=== PATIENT | male | born 1970 | race Caucasian/White ===

== ENCOUNTER 2016-12-17 23:06 | Emergency (ER) | payer BC, OTHER ==
[~2016-12-17] VITALS: Ht 172.7 cm; Wt 97.5 kg
[~2016-12-17 23:06] MED LIST: ALBU17IN INH; ASPI1TAB PO; ASPI81CH PO; BUPR150T5 PO; BUPR300T34 PO; CARV25TA PO; CIPR500T89 PO; DRIS50002 PO; FLOM5CAP PO; GEMF600T PO; IPRASOL4 INH; ISOS30TA4 PO; LISI-538 PO; LISI40TAB PO; METF500T4 PO; METO50TA2 PO; MUCI600T34 PO; OMEP20CA3 PO; OXYC1TAB15 PO; PERCOCET PO; SIMV20TA2 PO
[2016-12-17] MEDS ORDERED: BENA25CA4 PO (23:24)
[2016-12-17] MEDS ORDERED: BENA25TA9 PO (23:24)
[2016-12-17] MEDS ORDERED: PENI250T57 PO (23:26)
[2016-12-18] MEDS ORDERED: NS 1,000 ML IV ONE (00:15)
[2016-12-18] MEDS ORDERED: diphenhydrAMINE INJ 50MG/ML VIAL (J1200) IV ONE (00:15)
[2016-12-18] MEDS ORDERED: FAMOTIDINE IV BAG 20 MG in APPROPRIATE DILUENT 1 EA IV ONE (00:15)
[2016-12-18] MEDS ORDERED: methylPREDNISolone INJ 125 MG/2 ML VIAL (J2930) IV ONE (00:15)
[2016-12-18] MEDS ORDERED: PRED20TA PO (02:01)
[2016-12-18] MEDS ORDERED: EPIP0.3I2 IJ (02:01)
[2016-12-18 02:11] VITALS: BP 147/96
== END 2016-12-18 02:18 | disposition home or self-care (01) ==
LOC: M ED 12-18 00:16
DX: R22.0 Localized swelling, mass and lump, head (principal); Z91.018 Allergy to other foods; I10 Essential (primary) hypertension; Z79.82 Long term (current) use of aspirin; Z79.899 Other long term (current) drug therapy; Z79.52 Long term (current) use of systemic steroids
CPT/HCPCS: 93041; 94760; 96365; 96375; 99284; J1200; J2930

== ENCOUNTER 2017-06-10 17:05 | Emergency (ER) | payer BC, OTHER ==
[~2017-06-10] VITALS: Ht 172.7 cm; Wt 99.0 kg
[~2017-06-10 17:05] MED LIST changes: +BENA25CA4 PO; +BENA25TA10 PO; +CIPR-249 PO; -CIPR500T89 PO; +EPIP0.3I2 IJ; -METO50TA2 PO; +METO50TA7 PO; -MUCI600T34 PO; +MUCI600T37 PO; +PENI250T57 PO; +PRED20TA PO
[2017-06-10] MEDS ORDERED: ATOR40TA75 PO (17:17)
[2017-06-10] MEDS ORDERED: POTA10TA67 PO (17:17)
[2017-06-10] MEDS ORDERED: LOSA100T36 PO (17:17)
[2017-06-10] MEDS ORDERED: INSULADS INJ (17:17)
[2017-06-10] MEDS ORDERED: FLUO20CA8 PO (17:17)
[2017-06-10] MEDS ORDERED: ALBUTEROL SULFATE 2.5 MG/0.5 ML INH NEB SOLN INH ONE (18:00)
[2017-06-10] MEDS ORDERED: IPRATROPIUM 0.5MG/ALBUTEROL 2.5MG INH SOL UD 3ML (DUONEB)(J7620) NEB ONE (18:00)
[2017-06-10] MEDS ORDERED: methylPREDNISolone INJ 125 MG/2 ML VIAL (J2930) IV ONE (18:00)
[2017-06-10 18:11] LABS: BASO % 0.4 % (0.0-1.0); EOS # 0.2 K/mm3 (0.0-0.50); EOS % 1.6 % (0.0-3.0); LARGE UNSTAINED CELL # 0.2 K/mm3 (0.0-0.4); LARGE UNSTAINED CELL % 1.4 % (0.0-4.0); LYMPH # 1.9 K/mm3 (1.5-4.5); MEAN CORPUSCULAR HEMOGLOBIN 28.2 pg (27.0-33.0); MEAN CORPUSCULAR HGB CONC 34.2 g/dl (32.0-36.5); MEAN CORPUSCULAR VOLUME 82.7 fl (80.0-96.0); MONO # 0.5 K/mm3 (0.0-0.8); MONO % 4.4 % (0.0-5.0); NEUTROPHILS # 7.4 K/mm3 (1.8-7.7); NEUTROPHILS % 73.1 % (36.0-66.0); PLATELET COUNT, AUTOMATED 391 k/mm3 (150-450); RED CELL DISTRIBUTION WIDTH 13.7 % (11.5-14.5); WHITE BLOOD COUNT 10.1 K/mm3 (4.0-10.0)
[2017-06-10 18:24] LABS: ALBUMIN 3.2 GM/DL (3.2-5.2); ALBUMIN/GLOBULIN RATIO 0.73 (1.00-1.93); ALKALINE PHOSPHATASE 71 U/L (45-117); ALT/SGPT 17 U/L (12-78); ANION GAP 10 MEQ/L (8-16); AST/SGOT 10 U/L (15-37); BILIRUBIN,DIRECT 0.2 MG/DL (0.0-0.2); BILIRUBIN,TOTAL 0.6 MG/DL (0.2-1.0); BLOOD UREA NITROGEN 6 MG/DL (7-18); CALCIUM LEVEL 7.6 MG/DL (8.5-10.1); CARBON DIOXIDE LEVEL 28 MEQ/L (21-32); CHLORIDE LEVEL 103 MEQ/L (98-107); CREATININE FOR GFR 0.63 MG/DL (0.70-1.30); GLOMERULAR FILTRATION RATE > 60.0 (>60); GLUCOSE, FASTING 116 MG/DL (70-105); POTASSIUM SERUM 2.5 MEQ/L (3.5-5.1); SODIUM LEVEL 141 MEQ/L (136-145); THYROXINE (T4) 8.2 UG/DL (4.5-12.0); TOTAL PROTEIN 7.6 GM/DL (6.4-8.2)
--- NOTE | 2017-06-10 18:45 | REP ---
Clinical: Shortness of breath. Comparison: 05/29/2016. Findings: Cardiomegaly is appreciated along with chronic interstitial changes and suspected superimposed interstitial edema versus diffuse bronchitis. Small patchy infiltrates involving the right lung cannot be excluded. No effusion. No pneumothorax. Skeletal structures intact. Impression: Cardiomegaly and possible interstitial edema. Differential diagnosis includes diffuse bronchitis as well as subtle patchy alveolar infiltrates involving the right lung and left perihilar region. Signed by Benito Burk MD 06/10/2017 06:36 P
[2017-06-10] MEDS ORDERED: FUROSEMIDE 40 MG/4 ML VIAL (J1940) IV ONE (19:00)
[2017-06-10] MEDS ORDERED: POTASSIUM CHLORIDE 10 MEQ SR TABLET PO ONE (19:30)
[2017-06-10 21:19] VITALS: O2SAT 100
[2017-06-10 21:29] VITALS: BP 178/94
--- NOTE | 2017-06-11 21:05 | ECGEPIP ---
Stationary ECG Study [facility] - ED Test Date: 2017-06-10 Pat Name: SANDRA SMITH Department: Room: - Gender: M Glazier Structural Glass: rn : 1970 Requested By: Bam Pérez Order Number: [id number] Reading MD: Soledad Main Measurements Intervals [place] Rate: 99 P: 38 MT: 195 QRS: 26 QRSD: 118 T: 38 QT: 373 QTc: 479 Interpretive Statements SINUS RHYTHM MODERATE INTRAVENTRICULAR CONDUCTION DELAY MINIMAL ST DEPRESSION DELAYED R PROGRESSION Electronically Signed On 06-11-2017 21:04:58 EDT by Soledad Main
== END 2017-06-10 21:31 | disposition home or self-care (01) ==
LOC: M ED 17:05
DX: I50.9 Heart failure, unspecified (principal); I25.2 Old myocardial infarction; E11.9 Type 2 diabetes mellitus without complications; I10 Essential (primary) hypertension; J44.9 Chronic obstructive pulmonary disease, unspecified; Z98.61 Coronary angioplasty status; Z72.0 Tobacco use
CPT/HCPCS: 71010; 80048; 80076; 82550; 82553; 83605; 83880; 84436; 84443; 85025; 87040; 93000; 93041; 94640; 94760; 96374; 96375; 99285; J1940; J2930

== ENCOUNTER 2018-02-16 21:28 | Emergency (ER) | payer OTHER ==
[2018-02-16 21:51] LABS: BASO # 0.1 10^3/uL (0.0-0.2); BASO % 0.5 % (0.0-1.0); EOS # 0.8 10^3/uL (0.0-0.50); EOS % 6.6 % (0.0-3.0); HEMATOCRIT 30.4 % (42.0-52.0); HEMOGLOBIN 10.3 g/dl (13.5-17.5); IMMATURE GRANULOCYTE % 0.6 % (0-3.0); LYMPH % 33.2 % (24.0-44.0); MEAN CORPUSCULAR HEMOGLOBIN 28.8 pg (27.0-33.0); MEAN CORPUSCULAR HGB CONC 33.9 g/dl (32.0-36.5); MEAN CORPUSCULAR VOLUME 84.9 fl (80.0-96.0); MONO # 0.9 10^3/uL (0.0-0.8); MONO % 7.2 % (0.0-5.0); NEUTROPHILS # 6.2 10^3/uL (1.8-7.7); NEUTROPHILS % 51.9 % (36.0-66.0); PLATELET COUNT, AUTOMATED 253 10^3/uL (150-450); RED BLOOD COUNT 3.58 10^6/uL (4.30-6.10); RED CELL DISTRIBUTION WIDTH 16.1 % (11.5-14.5)
[2018-02-16 22:16] LABS: ANION GAP 7 MEQ/L (8-16); BLOOD UREA NITROGEN 26 MG/DL (7-18); CALCIUM LEVEL 8.5 MG/DL (8.5-10.1); CARBON DIOXIDE LEVEL 27 MEQ/L (21-32); CHLORIDE LEVEL 105 MEQ/L (98-107); CK-MB VALUE MASS 1.8 NG/ML (<3.6); CPK CREATINE PHOSPHOKINASE 167 U/L (39-308); CREATININE FOR GFR 1.85 MG/DL (0.70-1.30); GLOMERULAR FILTRATION RATE 41.7 (>60); GLUCOSE, FASTING 239 MG/DL (70-100); MB/CK RELATIVE INDEX 1.07 (< OR =4); POTASSIUM SERUM 3.9 MEQ/L (3.5-5.1); SODIUM LEVEL 139 MEQ/L (136-145); TROPONIN I < 0.02 NG/ML (< 0.10)
[2018-02-16 22:38] LABS: MAGNESIUM LEVEL 1.3 MG/DL (1.8-2.4)
[2018-02-16] MEDS: MAGNESIUM OXIDE 400 MG TAB (MAG-OX) PO (23:43)
== END 2018-02-17 00:50 | disposition home or self-care (01) ==
LOC: M ED 02-17 00:50
DX: I49.1 Atrial premature depolarization (principal); E83.42 Hypomagnesemia; I25.10 Atherosclerotic heart disease of native coronary artery without angina pectoris; I10 Essential (primary) hypertension; E78.5 Hyperlipidemia, unspecified; F41.9 Anxiety disorder, unspecified; J44.9 Chronic obstructive pulmonary disease, unspecified; K21.9 Gastro-esophageal reflux disease without esophagitis; Z87.442 Personal history of urinary calculi; Z95.5 Presence of coronary angioplasty implant and graft; F17.200 Nicotine dependence, unspecified, uncomplicated; Z79.82 Long term (current) use of aspirin; Z79.4 Long term (current) use of insulin; Z79.899 Other long term (current) drug therapy; Z88.8 Allergy status to other drugs, medicaments and biological substances
CPT/HCPCS: 93005

== ENCOUNTER 2018-05-04 02:25 | Emergency (ER) | payer OTHER ==
[2018-05-04 04:04] LABS: CPK CREATINE PHOSPHOKINASE 140 U/L (39-308); TROPONIN I < 0.02 NG/ML (< 0.10)
[2018-05-04 04:05] LABS: CK-MB VALUE MASS 2.2 NG/ML (<3.6); MB/CK RELATIVE INDEX 1.57 (< OR =4)
[2018-05-04] MEDS: MORPHINE 4 MG/ML 1ML VIAL/SYRINGE (J2270) IV (04:11)
== END 2018-05-04 05:26 | disposition home or self-care (01) ==
LOC: M ED 02:25
DX: M75.80 Other shoulder lesions, unspecified shoulder (principal); R94.31 Abnormal electrocardiogram [ECG] [EKG]; I25.10 Atherosclerotic heart disease of native coronary artery without angina pectoris; E11.9 Type 2 diabetes mellitus without complications; I10 Essential (primary) hypertension; J45.909 Unspecified asthma, uncomplicated; E78.5 Hyperlipidemia, unspecified; Z87.39 Personal history of other diseases of the musculoskeletal system and connective tissue; Z95.0 Presence of cardiac pacemaker; Z88.8 Allergy status to other drugs, medicaments and biological substances; Z79.01 Long term (current) use of anticoagulants; Z79.4 Long term (current) use of insulin; Z79.899 Other long term (current) drug therapy
CPT/HCPCS: J2270

== ENCOUNTER 2019-10-07 13:17 | Emergency (ER) | payer OTHER ==
[~2019-10-07] VITALS: Ht 172.7 cm; Wt 110.5 kg
[~2019-10-07 13:17] MED LIST changes: +ASPI-255 PO; -ASPI1TAB PO; -ASPI81CH PO; +ASPI81CH49 PO; +ASPI81TA26 PO; +ATOR40TA75 PO; +COMBAER6 INH; +CRES40TA PO; -DRIS50002 PO; +DRIS50003 PO; +DYAZ37.5 PO; +FERR325T82 PO; +FISH7.5C PO; +FLOM0.4C39 PO; -FLOM5CAP PO; +FLUO20CA20 PO; -GEMF600T PO; +GEMF600T5 PO; +INSULADS INJ; +IPRA0.00 INH; -IPRASOL4 INH; +LISI40TA52 PO; -LISI40TAB PO; +LOSA100T50 PO; +MAGN250T9 PO; +METF-791 PO; +METF10004 PO; -METF500T4 PO; +OMEP-172 PO; -OMEP20CA3 PO; +PLAV1TAB2 PO; +POTA10CA32 PO; +POTA10TA67 PO; -SIMV20TA2 PO; +SIMV20TA22 PO; +TRIA75TA PO
[2019-10-07] MEDS ORDERED: CVS1TAB55 PO (13:38)
[2019-10-07] MEDS ORDERED: ABIL1INJ IM (13:38)
[2019-10-07] MEDS ORDERED: NOVOINJ SC (13:38)
[2019-10-07 14:17] LABS: BASO # 0.1 10^3/uL (0.0-0.2); BASO % 0.6 % (0.0-1.0); EOS # 0.3 10^3/uL (0.0-0.5); EOS % 3.2 % (0.0-3.0); HEMATOCRIT 42.3 % (42.0-52.0); HEMOGLOBIN 13.9 g/dl (13.5-17.5); LYMPH # 2.8 10^3/uL (1.5-5.0); LYMPH % 33.3 % (24.0-44.0); MEAN CORPUSCULAR HEMOGLOBIN 28.7 pg (27.0-33.0); MEAN CORPUSCULAR HGB CONC 32.9 g/dl (32.0-36.5); MEAN CORPUSCULAR VOLUME 87.4 fl (80.0-96.0); MONO # 0.7 10^3/uL (0.0-0.8); MONO % 8.6 % (0.0-5.0); NEUTROPHILS # 4.5 10^3/uL (1.5-8.5); NEUTROPHILS % 53.7 % (36.0-66.0); PLATELET COUNT, AUTOMATED 247 10^3/uL (150-450); RED BLOOD COUNT 4.84 10^6/uL (4.30-6.10); WHITE BLOOD COUNT 8.4 10^3/uL (4.0-10.0)
--- NOTE | 2019-10-07 14:19 | REP ---
Clinical: Acute neurological symptoms. Comparison: 09/22/2016 Findings: Age-related atrophy periventricular leukomalacia and microvascular ischemic changes are appreciated. The ventricles and sulci are symmetric. Deleon-white differentiation is maintained. There is no evidence for acute intracranial hemorrhage, mass/mass effect, pathology or infarction. No extra-axial fluid collection. Calvarium is intact. Paranasal sinuses and mastoid air cells are clear. Impression: Age related atrophy and microvascular ischemic changes. No acute intracranial hemorrhage, infarction, or mass/mass effect. Electronically Signed by Benito Burk MD 10/07/2019 02:10 P
[2019-10-07 14:28] LABS: PARTIAL THROMBOPLASTIN TIME 29.5 SECONDS (25.0-38.4); PROTHROMBIN TIME 12.9 SECONDS (11.8-14.0)
[2019-10-07 14:49] LABS: BLOOD UREA NITROGEN 26 MG/DL (7-18); CARBON DIOXIDE LEVEL 25 MEQ/L (21-32); CHLORIDE LEVEL 102 MEQ/L (98-107); CK-MB VALUE MASS 1.8 NG/ML (<3.6); CPK CREATINE PHOSPHOKINASE 102 U/L (39-308); CREATININE FOR GFR 1.36 MG/DL (0.70-1.30); GLOMERULAR FILTRATION RATE 59.1 (>56); GLUCOSE, FASTING 204 MG/DL (70-100); MB/CK RELATIVE INDEX 1.76 (< OR =4); POTASSIUM SERUM 3.8 MEQ/L (3.5-5.1); SODIUM LEVEL 136 MEQ/L (136-145); TROPONIN I < 0.02 NG/ML (< 0.10)
--- NOTE | 2019-10-07 14:58 | REP ---
Clinical: Acute neurological symptoms . Comparison: 06/10/2017 . Findings: The mediastinum and cardiac silhouette are stable and cardiomegaly is again suggested. The lung duarte demonstrate chronic interstitial changes without acute consolidation, effusion, or pneumothorax. Skeletal structures are intact. Impression: No acute cardiopulmonary process appreciated. Electronically Signed by Benito Burk MD 10/07/2019 02:50 P
[2019-10-07 18:31] VITALS: BP 160/95
--- NOTE | 2019-10-07 20:20 | ECGEPIP ---
[facility] - ED Test Date: 2019-10-07 Pat Name: MIRIAN KRISHNAMURTHY Department: Room: - Gender: Male Web Engineer: RAFAEL : 1970 Requested By: YANELIS Jasso Order Number: [id number] Reading MD: Mohsen Almaguer Measurements Intervals [place] Rate: 75 P: 37 TN: 219 QRS: -16 QRSD: 124 T: 30 QT: 402 QTc: 451 Interpretive Statements SINUS RHYTHM WITH FIRST DEGREE AV BLOCK POSSIBLE LEFT ATRIAL ENLARGEMENT POSSIBLE ANTERIOR MYOCARDIAL INFARCTION, OF INDETERMINATE AGE INFERIOR MYOCARDIAL INFARCTION, PROBABLY OLD MODERATE INTRAVENTRICULAR CONDUCTION DELAY SIMILAR TO 05/04/18 Electronically Signed on 10-07-2019 20:20:28 EST by Mohsen Almaguer
== END 2019-10-07 18:33 | disposition short-term general hospital (02) ==
LOC: M ED 13:17
DX: I63.9 Cerebral infarction, unspecified (principal); R53.1 Weakness; I10 Essential (primary) hypertension; I25.10 Atherosclerotic heart disease of native coronary artery without angina pectoris; E78.49 Other hyperlipidemia; G47.33 Obstructive sleep apnea (adult) (pediatric); Z98.61 Coronary angioplasty status; F17.218 Nicotine dependence, cigarettes, with other nicotine-induced disorders; Z88.0 Allergy status to penicillin

== ENCOUNTER → 2019-11-06 | Outpatient (RCR) | payer OTHER ==
[~2019-11-06] MED LIST changes: +ABIL1INJ IM; -BUPR300T34 PO; +BUPR300T92 PO; +CVSTAB PO; +NOVOINJ SC; -OMEP-172 PO; +OMEP1CAP73 PO
== END ==
LOC: M OT 10-28 09:12
PROVIDERS: ATTEND Internal Medicine
DX: I69.351 Hemiplegia and hemiparesis following cerebral infarction affecting right dominant side (principal)

== ENCOUNTER 2019-12-04 09:45 | Outpatient (RCR) | payer OTHER | END 2019-12-05 | LOC: M OT 09:45 | PROVIDERS: ATTEND Internal Medicine | DX: Z47.89 Encounter for other orthopedic aftercare (principal); I69.351 Hemiplegia and hemiparesis following cerebral infarction affecting right dominant side ==

== ENCOUNTER 2020-11-19 01:50 | Emergency (ER) | payer OTHER ==
[~2020-11-19] VITALS: Ht 167.6 cm; Wt 106.8 kg
[~2020-11-19 01:50] MED LIST changes: +ISOS1TAB35 PO; -ISOS30TA4 PO; -LISI-538 PO; +LISI20TA33 PO; -METF-791 PO; +METF-838 PO
--- OUTSIDE RECORDS SUMMARY | 2020-11-19 01:55 | CCD ---
Author Author [facility] Organization [facility] Address Unknown Phone Unavailable Support Name Relationship Address Phone RE Next Of Kin Unknown Unavailable [employer] Next Of Kin [address] [place] [address] SANJUANITA BEAN Next Of Kin [address] [place] [id number] MICKY SMITH Next Of Kin [address] [place] [id number] NYAB Next Of Kin [address] [place] [address] PPC MYNOR Next Of Kin [address] [place] [address] PPC/MYNOR Next Of Kin [address] [place] [address] [place] [address] JANINA DELUNA Next Of Kin [address] [place] [address] PREMIER LOCATING Next Of Kin [place], [place] [address] Romero SMITH Next Of Kin [address] [place] [address] Re-disclosure Warning The records that you are about to access may contain information from federally-assisted alcohol or drug abuse programs. If such information is present, then the following federally mandated warning applies: This information has been disclosed to you from records protected by federal confidentiality rules (42 CFR part 2). The federal rules prohibit you from making any further disclosure of this information unless further disclosure is expressly permitted by the written consent of the person to whom it pertains or as otherwise permitted by 42 CFR part 2. A general authorization for the release of medical or other information is NOT sufficient for this purpose. The Federal rules restrict any use of the information to criminally investigate or prosecute any alcohol or drug abuse patient.The records that you are about to access may contain highly sensitive health information, the redisclosure of which is protected by Article 27-F of the [facility] Public Health law. If you continue you may have access to information: Regarding HIV / AIDS; Provided by facilities licensed or operated by the [facility] Office of Mental Health; or Provided by the [facility] Office for People With Developmental Disabilities. If such information is present, then the following [facility] mandated warning applies: This information has been disclosed to you from confidential records which are protected by state law. State law prohibits you from making any further disclosure of this information without the specific written consent of the person to whom it pertains, or as otherwise permitted by law. Any unauthorized further disclosure in violation of state law may result in a fine or longterm sentence or both. A general authorization for the release of medical or other information is NOT sufficient authorization for further disc losure. Insurance Providers Payer name Policy type / Coverage type Policy ID Covered green party ID Covered green party's relationship to mary Policy Mary Plan Information TAMI [id number] SP [id number] BCBS [place] PPO 302/307 [id number] SP [id number] [employer] COMP [id number] SP [id number] [employer] O [id number] S [id number] EXCELLUS BCBS B [id number] S CRL [id number] [place] O [id number] S 74 [id number] [id number] S [id number] 'S ADMINISTRATION [id number] SP [id number] [employer] PPO 2 [id number] 1 [id number] SELF PAY 2 UNAVAILABLE 1 UNAVAILA BLE SELF PAY UNAVAILABLE SP UNAVAILA BLE [employer] CLAIMS [id number] SP [id number] [employer] CLAIMS [id number] SP [id number]
[2020-11-19] MEDS ORDERED: PERCOCET 5MG/325MG TAB PO ONE (02:15)
[2020-11-19] MEDS ORDERED: PERC5TAB12 PO (02:18)
--- OUTSIDE RECORDS SUMMARY | 2020-11-19 02:41 | CCD ---
Author Author [facility] Organization [facility] Address Unknown Phone Unavailable Support Name Relationship Address Phone RE Next Of Kin Unknown Unavailable [employer] Next Of Kin [address] [place] [address] SANJUANITA BEAN Next Of Kin [address] [place], [place] [id number] MICKY SMITH Next Of Kin [address] [place], [place] [phone] NYAB Next Of Kin [address] [place] [address] PPC MYNOR Next Of Kin [address] [place] [address] PPC/MYNOR Next Of Kin [address] [place] [address] [place] [address] JANINA DELUNA Next Of Kin [address] [place] [address] PREMIER LOCATING Next [place] [address] Romero SMITH Next Of Kin [address] [place] [address] Re-disclosure Warning The records that you are [...] is protected by Article 27-F of the [facility] Public Health law. If you continue you may have access to information: Regarding HIV / AIDS; Provided by facilities licensed or operated by the [facility] Office of Mental Health; or Provided by the [facility] Office for People With Developmental Disabilities. If such information is present, then the following [facility] mandated warning applies: This information has [...] law may result in a fine or skilled nursing sentence or both. A general authorization for the release of medical or other information is NOT sufficient authorization for further disc losure. Insurance Providers Payer name Policy type / Coverage type Policy ID Covered constitution party ID Covered constitution party's relationship to mary Policy Mary Plan Information TAMI [id number] SP [id number] 400 BCBS [place] PPO 302/307 [id number] SP [id number] [employer] COMP [id number] SP [id number] [employer] O [id number] S [id number] EXCELLUS BCBS B [id number] S CRL [id number] [place] O [id number] S [id number] [facility] [id number] S [id number] 'S ADMINISTRATION [id number] SP [id number] [employer] PPO 2 [id number] 1 [id number] SELF PAY 2 UNAVAILABLE 1 UNAVAILA BLE SELF PAY UNAVAILABLE SP UNAVAILA BLE [employer] CLAIMS [id number] SP [id number] [employer] CLAIMS [id number] SP [id number]
[2020-11-19 03:00] VITALS: BP 143/82
--- NOTE | 2020-11-19 05:21 | ECGEPIP ---
[facility] - ED Test Date: 2020-11-19 Pat Name: MIRIAN KRISHNAMURTHY Department: Room: - Gender: Male Licensed Physical Therapy Assistant: MIGUELITO : 1970 Requested By: Soledad Main Order Number: [id number] Reading MD: Soledad Main Measurements Intervals [place] Rate: 80 P: 27 ID: 240 QRS: -18 QRSD: 116 T: 19 QT: 367 QTc: 424 Interpretive Statements SINUS RHYTHM WITH FIRST DEGREE AV BLOCK IVCD POSSIBLE ANTERIOR MYOCARDIAL INFARCTION, OF INDETERMINATE AGE INFERIOR MYOCARDIAL INFARCTION, PROBABLY OLD SIMILAR 10/07/19 Electronically Signed on 11-19-2020 5:21:10 EST by Soledad Main
== END 2020-11-19 03:07 | disposition home or self-care (01) ==
LOC: M ED 01:50
DX: M25.511 Pain in right shoulder (principal); R94.31 Abnormal electrocardiogram [ECG] [EKG]; I25.10 Atherosclerotic heart disease of native coronary artery without angina pectoris; I25.2 Old myocardial infarction; E11.9 Type 2 diabetes mellitus without complications; I10 Essential (primary) hypertension; E78.5 Hyperlipidemia, unspecified; G47.33 Obstructive sleep apnea (adult) (pediatric); K21.9 Gastro-esophageal reflux disease without esophagitis; G43.909 Migraine, unspecified, not intractable, without status migrainosus; F17.200 Nicotine dependence, unspecified, uncomplicated; Z88.8 Allergy status to other drugs, medicaments and biological substances; Z79.4 Long term (current) use of insulin; Z79.899 Other long term (current) drug therapy

== ENCOUNTER 2020-11-24 12:04 | Emergency (ER) | payer OTHER ==
[~2020-11-24] VITALS: Ht 172.7 cm; Wt 107.4 kg
[2020-11-24 12:04] VITALS: BP 148/86
[~2020-11-24 12:04] MED LIST changes: +PERC5TAB12 PO
--- OUTSIDE RECORDS SUMMARY | 2020-11-24 12:09 | CCD ---
Author Author [facility] Organization [facility] Address Unknown Phone Unavailable Support Name Relationship Address Phone RE Next Of Kin Unknown Unavailable [employer] Next Of Kin [address] [place] [address] SANJUANITA BEAN Next Of Kin [address] [place], [place] [phone] MICKY SMITH Next Of Kin [address] [place], [place] [phone] NYAB Next Of Kin [address] [address] PPC MYNOR Next Of Kin [address] [place] [address] PPC/MYNOR Next Of Kin [address] [place] [address] [place] [address] JANINA DELUNA Next Of Kin [address] [place] [address] PREMIER LOCATING Next [place] [address] Romreo SMITH Next Of Kin [address] [place] [address] Re-disclosure Warning The records that you are [...] is protected by Article 27-F of the [facility] Public Health law. If you continue you may have access to information: Regarding HIV / AIDS; Provided by facilities licensed or operated by the [facility] Office of Mental Health; or Provided by the [facility] Office for People With Developmental Disabilities. If such information is present, then the following [facility] mandated warning applies: This information has been [...] law may result in a fine or long term sentence or both. A general authorization for the release of medical or other information is NOT sufficient authorization for further disc losure. Insurance Providers Payer name Policy type / Coverage type Policy ID Covered republican ID Covered republican's relationship to mary Policy Mary Plan Information TAMI [id number] SP [id number] 400 BCBS [place] PPO 302/307 [id number] SP [id number] [employer] M[employer] COMP [id number] SP [id number] [employer] O [id number] S [id number] EXCELLUS BCBS B [id number] S CRL [id number] [place] O [id number] S [id number] [facility] [id number] S [id number] 'S ADMINISTRATION [id number] SP [id number] [employer] PPO 2 [id number] 1 [id number] SELF PAY 2 UNAVAILABLE 1 UNAVAILA BLE SELF PAY UNAVAILABLE SP UNAVAILA BLE [employer] CLAIMS [id number] SP [id number] [employer] CLAIMS [id number] SP [id number]
[2020-11-24] MEDS ORDERED: MELO7.5T35 (12:12)
--- OUTSIDE RECORDS SUMMARY | 2020-11-24 12:48 | CCD ---
Author Author [facility] Organization [facility] Address Unknown Phone Unavailable Support Name Relationship Address Phone RE Next Of Kin Unknown Unavailable B[employer]STATE Next Of Kin [address] [place] [address] SANJUANITA BEAN Next Of Kin [address] [place], [place] [id number] MICKY SMITH Next Of Kin [address] [place], [place] [id number] NYAB Next Of Kin [address] [address] PPC MYNOR Next Of Kin [address] [place] [address] PPC/MYNOR Next Of Kin [address] [place] [address] [place] [address] JANINA DELUNA Next Of Kin [address] [place] [address] PREMIER LOCATING Next [place] Kin [place], [place] [address] Romero SMITH Next Of Kin [address] [place] [address] Re-disclosure Warning The records that you are [...] by Article 27-F of the [facility] Public Health law. If you continue you may have access to information: Regarding HIV / AIDS; Provided by facilities licensed or operated by the [facility] Office of Mental Health; or Provided by the [facility] Office for People With Developmental Disabilities. If such information is present, then the following [facility] mandated warning applies: This information has [...] law may result in a fine or fpc sentence or both. A general authorization for the release of medical or other information is NOT sufficient authorization for further disc losure. Insurance Providers Payer name Policy type / Coverage type Policy ID Covered democrat ID Covered democrat's relationship to mary Policy Mary Plan Information TAMI [id number] SP [id number] 400 BCBS [place] PPO 302/307 [id number] SP [id number] [employer] COMP [id number] SP [id number] [employer] [place] O [id number] S [id number] EXCELLUS BCBS B [id number] S CRL [id number] [place] O [id number] S 74 [id number] [facility] [id number] S [id number] 'S ADMINISTRATION [id number] SP [id number] [employer] PPO 2 [id number] 1 [id number] SELF PAY 2 UNAVAILABLE 1 UNAVAILA BLE SELF PAY UNAVAILABLE SP UNAVAILA BLE [employer] CLAIMS [id number] SP [id number] [employer] CLAIMS [id number] SP [id number]
[2020-11-24] MEDS ORDERED: HYDR-3713 PO (13:14)
== END 2020-11-24 13:18 | disposition home or self-care (01) ==
LOC: M ED 12:04
DX: M25.512 Pain in left shoulder (principal); G58.9 Mononeuropathy, unspecified; Z76.0 Encounter for issue of repeat prescription; I25.10 Atherosclerotic heart disease of native coronary artery without angina pectoris; I25.2 Old myocardial infarction; E11.9 Type 2 diabetes mellitus without complications; I10 Essential (primary) hypertension; E78.5 Hyperlipidemia, unspecified; G47.33 Obstructive sleep apnea (adult) (pediatric); K21.9 Gastro-esophageal reflux disease without esophagitis; G43.909 Migraine, unspecified, not intractable, without status migrainosus; F17.200 Nicotine dependence, unspecified, uncomplicated; Z88.8 Allergy status to other drugs, medicaments and biological substances; Z79.4 Long term (current) use of insulin; Z79.899 Other long term (current) drug therapy

== ENCOUNTER 2020-12-01 02:03 | Emergency (ER) | payer OTHER ==
[~2020-12-01] VITALS: Ht 172.7 cm; Wt 107.8 kg
[~2020-12-01 02:03] MED LIST changes: +HYDR-3713 PO; +MELO7.5T35
--- OUTSIDE RECORDS SUMMARY | 2020-12-01 02:11 | CCD ---
Author Author [facility] Organization [facility] Address Unknown Phone Unavailable Support Name Relationship Address Phone RE Next Of Kin Unknown Unavailable BURGRSTATE Next Of Kin [address] [place] [address] SANJUANITA BEAN Next Of Kin [address] [place], [place] [id number] MICKY SMITH Next Of Kin [address] [place], [place] [id number] NYAB Next Of Kin [address] [place] [address] PPC MYNOR Next Of Kin [address] [place] [address] PPC/MYNOR Next Of Kin [address] [place] [address] [place] [address] JANINA DELUNA Next Of Kin [address] [place] [address] PREMIER LOCATING Next [place] Kin [place], [place] [address] Romero SMITH Next Of Kin [address] [place] [address] Re-disclosure Warning The records that you are [...] is protected by Article 27-F of the [facility] Public Health law. If you continue you may have access to information: Regarding HIV / AIDS; Provided by facilities licensed or operated by the [facility] Office of Mental Health; or Provided by the [facility] Office for People With Developmental Disabilities. If such information is present, then the following [facility] mandated warning applies: This information has been [...] law may result in a fine or snf sentence or both. A general authorization for the release of medical or other information is NOT sufficient authorization for further disc losure. Insurance Providers Payer name Policy type / Coverage type Policy ID Covered republican ID Covered republican's relationship to mary Policy Mary Plan Information TAMI [id number] SP [id number] 400 BCBS [place] PPO 302/307 [id number] SP [id number] [employer] COMP [id number] SP [id number] [employer] O [id number] S [id number] EXCELLUS BCBS B [id number] S CRL [id number] [place] O [id number] S 74 [id number] [facility] [id number] S [id number] 'S ADMINISTRATION [id number] SP [id number] [employer] PPO 2 [id number] 1 [id number] SELF PAY 2 UNAVAILABLE 1 UNAVAILA BLE SELF PAY UNAVAILABLE SP UNAVAILA BLE [employer] CLAIMS [id number] SP [id number] [employer] CLAIMS [id number] SP [id number]
[2020-12-01] MEDS ORDERED: NORCO 5/325MG TABLET (BULK FOR ED) PO ONE (03:05)
[2020-12-01] MEDS ORDERED: NEUR100C PO (03:09)
--- OUTSIDE RECORDS SUMMARY | 2020-12-01 03:20 | CCD ---
Author Author [facility] Organization [facility] Address Unknown Phone Unavailable Support Name Relationship Address Phone RE Next Of Kin Unknown Unavailable BURGRSTATE Next Of Kin [address] [place] [address] SANJUANITA BEAN Next Of Kin [address] [place], [place] [phone] MICKY SMITH Next Of Kin [address] [place], [place] [id number] NYAB Next Of Kin [address] [place] [address] PPC MYNOR Next Of Kin [address] [place] [address] PPC/MYNOR Next Of Kin [address] [place] [address] [place] [address] JANINA DELUNA Next Of Kin [address] [place] [address] PREMIER LOCATING Next [place], [place] [address] Romero SMITH Next Of Kin [address] [place] [address] Re-disclosure Warning The records that you are [...] is protected by Article 27-F of the [facility] Public Health law. If you continue you may have access to information: Regarding HIV / AIDS; Provided by facilities licensed or operated by the [facility] Office of Mental Health; or Provided by the [facility] Office for People With Developmental Disabilities. If such information is present, then the following [facility] mandated warning applies: This information [...] law may result in a fine or care home sentence or both. A general authorization for the release of medical or other information is NOT sufficient authorization for further disc losure. Insurance Providers Payer name Policy type / Coverage type Policy ID Covered alliance party ID Covered alliance party's relationship to mary Policy Mary Plan Information TAMI [id number] SP [id number] 400 BCBS [place] PPO 302/307 [id number] SP [id number] [employer] WORK[employer] COMP [id number] SP [id number] [employer] O [id number] S [id number] EXCELLUS BCBS B [id number] S CRL [id number] [place] O [id number] S 74 [id number] [facility] [id number] S [id number] 'S ADMINISTRATION [id number] SP [id number] [employer] PPO 2 [id number] 1 [id number] SELF PAY 2 UNAVAILABLE 1 UNAVAILA BLE SELF PAY UNAVAILABLE SP UNAVAILA BLE [employer] CLAIMS [id number] SP [id number] [employer] CLAIMS [id number] SP [id number]
[2020-12-01 03:21] VITALS: BP 141/79
== END 2020-12-01 03:15 | disposition home or self-care (01) ==
LOC: M ED 02:03
DX: M25.512 Pain in left shoulder (principal); Z88.8 Allergy status to other drugs, medicaments and biological substances; Z79.899 Other long term (current) drug therapy; Z79.4 Long term (current) use of insulin

== ENCOUNTER → 2021-01-10 | Outpatient (CLI) | payer OTHER ==
[~2021-01-10] MED LIST changes: +NEUR100C PO
--- NOTE | 2021-01-10 13:20 | REP ---
INDICATION: CERVICAL RADICULOPATHY. COMPARISON: None. TECHNIQUE: Sagittal T1, T2, stir images of the cervical spine are obtained. Axial T1 and T2 weighted images obtained. FINDINGS: There is straightening of the cervical spine in absence of normal cervical lordosis. On the sagittal T2 weighted images, there is the appearance of thickening of the posterior longitudinal ligament from C4-5 level through the C7 level. This results in mild cord impingement within a narrowed spinal canal. Craniovertebral junction is unremarkable. Cervical cord appears normal in its caliber and signal characteristics. There is mild multilevel degenerative disc disease with loss of disc height and disc desiccation seen diffusely throughout the cervical spine. Vertebral heights are overall preserved. No gila malalignments. At C2-3: No significant canal or foraminal narrowing At C3-4: No significant canal or foraminal narrowing At C4-5: Disc-osteophyte complex and/or thickening of the posterior longitudinal ligament with jtfr-rk-ytqqlzeq canal narrowing and mild bilateral foraminal narrowing. At C5-6: Disc-osteophyte complex and/or thickening of the posterior longitudinal ligament slightly eccentric to the left with at least moderate canal narrowing and fnwt-kl-ugmymuyt bilateral foraminal narrowing. At C6-7: Disc-osteophyte complex and/or thickening of the posterior longitudinal ligament with immssmxx-yi-cotwhw canal stenosis with cord impingement and mild cord compression and at least moderate bilateral foraminal narrowing. At C7-T1: Disc-osteophyte complex with yeiz-yv-pttwfsds canal narrowing and npjk-rj-evqphfwa bilateral foraminal narrowing. IMPRESSION: Disc-osteophyte complex and/or thickening of the posterior longitudinal ligament with canal stenosis and cord impingement at C5 and C6 levels, and most notable at the C6-7 disc level. There is mild cord compression and slight remodeling of the cord but no definite abnormal cord signal. There is associated foraminal narrowing as described, C5-6 and C6-7 levels. <Electronically signed by Vinny Vanessa > 01/10/21 [id number]
== END ==
LOC: M PLARAD 11:41
PROVIDERS: ATTEND Orthopaedic Surgery
DX: M54.12 Radiculopathy, cervical region (principal)

== ENCOUNTER → 2021-02-10 | Outpatient (CLI) | payer OTHER ==
[~2021-02-10] MED LIST changes: +ABIL1TAB12 PO
== END ==
LOC: M LABSMTC 10:00
PROVIDERS: ATTEND Anesthesiology
DX: Z20.828 Contact with and (suspected) exposure to other viral communicable diseases (principal); Z11.59 Encounter for screening for other viral diseases

== ENCOUNTER 2021-02-15 07:38 | Day surgery (SDC) | payer OTHER ==
[~2021-02-15] VITALS: Ht 172.7 cm; Wt 102.5 kg
[~2021-02-15 07:38] MED LIST changes: +NS 1,000 ML IV ONE
[2021-02-15] MEDS ORDERED: propofoL 200 MG/20 ML VIAL As Ordered ONE ×2 (08:26→08:47)
[2021-02-15] MEDS ORDERED: LIDOCAINE 2% MDV 20ML VIAL As Ordered ONE (08:26)
--- NOTE | 2021-02-15 08:52 | ROOR ---
Patient Name: Law Mckee Procedure Date: 02/15/2021 8:25 AM Date of : 1970 Age: 50 Room: [facility] Gender: Male Note Status: Finalized Procedure: Total Colonoscopy to Cecum Indications: Screening for colorectal malignant neoplasm Providers: Luther Kim MD Referring MD: Alejandro Dickens MD Requesting Provider: Medicines: Monitored Anesthesia Care Complications: No immediate complications. Procedure: Pre-Anesthesia Assessment: - The heart rate, respiratory rate, oxygen saturations, blood pressure, adequacy of pulmonary ventilation, and response to care were monitored throughout the procedure. The Colonoscope was introduced through the anus and advanced to the cecum, identified by appendiceal orifice and ileocecal valve. The colonoscopy was performed without difficulty. The patient tolerated the procedure well. The quality of the bowel preparation was fair. Findings: The perianal and digital rectal examinations were normal. Non-bleeding internal hemorrhoids were found during retroflexion. The hemorrhoids were small and Grade I (internal hemorrhoids that do not prolapse). No other significant abnormalities were identified in a careful examination of the remainder of the colon. The exam was otherwise without abnormality. Impression: - Preparation of the colon was fair. - Non-bleeding internal hemorrhoids. - The examination was otherwise normal. - No specimens collected. - The exam was otherwise normal to the cecum. Recommendation: - Patient has a contact number available for emergencies. The signs and symptoms of potential delayed complications were discussed with the patient. Return to normal activities tomorrow. Written discharge instructions were provided to the patient. - High fiber diet. - Discharge patient to home. - Continue present medications. - Repeat colonoscopy in 10 years for screening purposes. - Return to referring physician. - The findings and recommendations were discussed with the patient's family. Procedure Code(s): --- Professional --- 90052, Colonoscopy, flexible; diagnostic, including collection of specimen(s) by brushing or washing, when performed (separate procedure) Diagnosis Code(s): --- Professional --- Z12.11, Encounter for screening for malignant neoplasm of colon K64.0, First degree hemorrhoids CPT copyright 2019 [employer]. All rights reserved. The codes documented in this report are preliminary and upon molder closed molds review may be revised to meet current compliance requirements. Luther Kim MD Luther Kim MD 02/15/2021 8:52:20 AM Electronically signed by Luther Kim MD Number of Addenda: 0 Note Initiated On: 02/15/2021 8:25 AM Estimated Blood Loss: Estimated blood loss: none.
[2021-02-15 09:13] VITALS: BP 124/62
== END 2021-02-15 10:17 | disposition home or self-care (01) ==
LOC: M OPP 07:38
PROVIDERS: ATTEND Internal Medicine Gastroenterology
DX: Z12.11 Encounter for screening for malignant neoplasm of colon (principal); K64.0 First degree hemorrhoids; I25.10 Atherosclerotic heart disease of native coronary artery without angina pectoris; I25.2 Old myocardial infarction; I10 Essential (primary) hypertension; E78.5 Hyperlipidemia, unspecified; E11.9 Type 2 diabetes mellitus without complications; F32.9 Major depressive disorder, single episode, unspecified; G43.909 Migraine, unspecified, not intractable, without status migrainosus; F43.10 Post-traumatic stress disorder, unspecified; J44.9 Chronic obstructive pulmonary disease, unspecified; G47.30 Sleep apnea, unspecified; F17.210 Nicotine dependence, cigarettes, uncomplicated; Z95.5 Presence of coronary angioplasty implant and graft; Z86.73 Personal history of transient ischemic attack (TIA), and cerebral infarction without residual deficits; Z88.8 Allergy status to other drugs, medicaments and biological substances; Z91.030 Bee allergy status; Z79.01 Long term (current) use of anticoagulants; Z79.4 Long term (current) use of insulin; Z79.899 Other long term (current) drug therapy

== ENCOUNTER 2021-04-10 19:59 | Inpatient (IN) | payer OTHER ==
[~2021-04-10] VITALS: Ht 172.7 cm; Wt 104.0 kg
[~2021-04-10 19:59] MED LIST changes: -INSULADS INJ; +INSULADS SC; -NS 1,000 ML IV ONE; -OXYC1TAB15 PO; +OXYC7.5T3 PO
[2021-04-10] MEDS ORDERED: REXU1TAB4 PO ×2 (20:10→23:16)
[2021-04-10 20:44] LABS: BASO # 0.1 10^3/uL (0.0-0.2); BASO % 0.6 % (0.0-1.0); EOS # 0.4 10^3/uL (0.0-0.5); EOS % 4.3 % (0.0-3.0); HEMATOCRIT 46.7 % (42.0-52.0); LYMPH % 31.7 % (24.0-44.0); MEAN CORPUSCULAR HEMOGLOBIN 29.6 pg (27.0-33.0); MEAN CORPUSCULAR HGB CONC 34.3 g/dl (32.0-36.5); MEAN CORPUSCULAR VOLUME 86.5 fl (80.0-96.0); MONO # 0.8 10^3/uL (0.0-0.8); MONO % 8.1 % (2.0-8.0); NEUTROPHILS # 5.3 10^3/uL (1.5-8.5); NEUTROPHILS % 54.9 % (36.0-66.0); PLATELET COUNT, AUTOMATED 222 10^3/uL (150-450); WHITE BLOOD COUNT 9.6 10^3/uL (4.0-10.0)
--- NOTE | 2021-04-10 20:51 | REPVR ---
PROCEDURE INFORMATION: Exam: CT Head Without Contrast Exam date and time: 04/10/2021 8:19 PM Age: 50 years old Clinical indication: Weakness, extremity; Right; Additional info: Right side weakness HX of stroke x2 TECHNIQUE: Imaging protocol: Computed tomography of the head without contrast. Axial and coronal reformatted images were created and reviewed. Radiation optimization: All CT scans at this facility use at least one of these dose optimization techniques: automated exposure control; mA and/or kV adjustment per patient size (includes targeted exams where dose is matched to clinical indication); or iterative reconstruction. COMPARISON: CT Head without contrast 10/07/2019 1:46 PM FINDINGS: Brain: Patchy areas of hypoattenuation in the periventricular and subcortical white matter, consistent with chronic small vessel ischemic disease. No CT evidence of acute intracranial hemorrhage or acute territorial infarction. No significant mass effect or midline shift. Basal cisterns patent. Cerebral ventricles: Prominence of the cortical sulci, cisterns and ventricular system, consistent with cerebral and cerebellar volume loss. Paranasal sinuses: Unremarkable. No fluid levels. Mastoid air cells: Grossly unremarkable. Vasculature: Calcific atherosclerotic disease in the cavernous internal carotid arteries, as well as the vertebro-basilar system. Bones/joints: No acute osseous abnormality. Soft tissues: Grossly unremarkable. IMPRESSION: 1. No CT evidence of acute intracranial pathology. 2. Additional findings, as above. Electronically signed by: Joshua Pozo On 04/10/2021 20:51:26 PM
[2021-04-10] MEDS ORDERED: LEVEMIR (INSULIN DETEMIR) 1 UNITS/0.01ML SC SCH (21:00)
[2021-04-10] MEDS ORDERED: ROSUVASTATIN 10 MG TAB (CRESTOR) PO SCH (21:00)
--- NOTE | 2021-04-10 21:06 | REPVR ---
PROCEDURE INFORMATION: Exam: XR Chest Exam date and time: 04/10/2021 8:35 PM Age: 50 years old Clinical indication: Other: CVA TECHNIQUE: Imaging protocol: XR of the chest. Views: 1 view. COMPARISON: CR PORTABLE CHEST X-RAY 10/07/2019 2:37 PM FINDINGS: Lungs: Unremarkable. No consolidation. Pleural spaces: Unremarkable. No pleural effusion. No pneumothorax. Heart/Mediastinum: Questionable mild cardiomegaly. Bones/joints: Unremarkable. IMPRESSION: No acute radiographic findings. Electronically signed by: Joshua Pozo On 04/10/2021 21:05:54 PM
[2021-04-10 21:26] LABS: BLOOD UREA NITROGEN 27 MG/DL (7-18); CALCIUM LEVEL 9.3 MG/DL (8.5-10.1); CARBON DIOXIDE LEVEL 29 MEQ/L (21-32); CHLORIDE LEVEL 103 MEQ/L (98-107); CK-MB VALUE MASS 1.6 NG/ML (<3.6); CPK CREATINE PHOSPHOKINASE 99 U/L (39-308); CREATININE FOR GFR 1.25 MG/DL (0.70-1.30); GLOMERULAR FILTRATION RATE > 60.0 (>56); GLUCOSE, FASTING 301 MG/DL (70-100); MB/CK RELATIVE INDEX 1.62 (< OR =4); POTASSIUM SERUM 3.5 MEQ/L (3.5-5.1); SODIUM LEVEL 137 MEQ/L (136-145); TROPONIN I < 0.02 NG/ML (< 0.10)
[2021-04-10] MEDS ORDERED: ACETAMINOPHEN TAB 650MG DOSE (2X325MG) PO PRN (22:35)
[2021-04-10] MEDS ORDERED: MOM 30ML SUSPENSION UDC PO PRN (22:35)
[2021-04-10] MEDS ORDERED: MAALOX 30 ML SUSP *UDC PO PRN (22:35)
[2021-04-10] MEDS ORDERED: GLUCAGON INJ 1MG VIAL SC PRN (22:55)
[2021-04-10] MEDS ORDERED: GLUCOSE 4GM CHEW TABLET PO PRN (22:55)
[2021-04-10] MEDS ORDERED: DEXTROSE 50% 50 ML SYRINGE IV PRN (22:55)
--- NOTE | 2021-04-10 23:04 | HPEPDOC ---
[facility] Medical History & Physical Date of Admission Apr 10, 2021 Date of Service: Apr 10, 2021 History and Physical CHIEF COMPLAINT: R sided weakness, numbness HISTORY OF PRESENT ILLNESS: 50-year-old male with a past medical history of CVA 2 with residual right-sided weakness, congestive heart failure, CAD status post SC in 2018, status post 1 stent [place], diabetes type 2, uncontrolled, hypertension, hyperlipidemia. Patient presented to the ER complaining of right arm and right leg numbness, paresthesia and weakness, reduced from baseline. Despite prior residual weakness from CVA. Patient states explicitly onset of s ymptoms at 5 PM, 3 hours prior to arrival to the ER at 1958. Per ER staff, patient endorsed onset of symptoms was 3:30 PM which had resolved prior to arrival to the ER. NIH score at the time of arrival was 2. At the time of examination. Patient continues to endorse numbness, paresthesia and weakness of the right side, which are below his level of function. He also states that he fell at home despite use of his cane. NIHSS score at the time of my examination is. 2. Initial CT of the head, noncontrast, showing no acute intracranial hemorrhage or ischemic stroke. Dr. Vinson was called from the ER. Recommending MRI without contrast of brain as well as MRA brain and MRA carotid arteries. Patient already takes aspirin and Plavix. Patient has blood sugars of 301 on arrival. Takes insulin at home. Suspect uncontrolled. Patient also endorses a 25+-pack-year smoking history with active smoking right now. Patient denies any vision changes, slurred speech. I discussed my findings with Dr. bautista more considering bounces symptoms at 5 PM on arrival at 1958. Abdominal examination was 0. Patient was outside of TPA window at the time of my exam. PAST MEDICAL HISTORY: CAD s/p 1 stent, 2012, cardiology at [place], [place] DM2 COPD not O2 dependent ROBERT on bipap GERD fatty liver obesity migraine Hx nephrolithiasis HTN HLD Nicotine dependence PAST SURGICAL HISTORY: appendectomy 1983 Gynecomastia reduction surgery 1992 Dbl J Stent 06/20, Stent removal 07/20. Left knee surgery BEN 10/19. SOCIAL HISTORY: 25+ pack year smoker, active denies etoh use denies illcit drug use CODE STATUS: full code FAMILY HISTORY: Father: , from suicide Mother: , colon ca Thyroid problems with siblings. ALLERGIES: Please see below. REVIEW OF SYSTEMS: 10 point ROS performed, relevant findings in HPI. HOME MEDICATIONS: Please see below. PHYSICAL EXAMINATION: VITAL SIGNS: please see below General: NAD, comfortable HEENT: PERRLA, EOMI, sclerae clear Neck: supple, normal ROM, no JVD Respiratory: lungs CTAB, no wheeze, no rales, no crackles CVS: RRR, normal S1, S2, no murmurs Abdo: soft, no masses, no hepatosplenomegaly, BS+, no rebound tenderness Extremities: no edema, pulses 2+ MSK: no joint deformities, normal ROM Neuro: 3/5 strenght in RUE, 3/5 strength in RLE. Diminished sensation in RUE, RLE. No pronator drift. Limited heel touch. No nystagmus. Speech clear. No uvular deviation. CN2-12 intact. PERRLA. Mentation normal, recall normal. Psych: calm, cooperative, AAO x 3 LABORATORY DATA: See below. IMAGING: CT head contrast (04/10/21): FINDINGS: Brain: Patchy areas of hypoattenuation in the periventricular and subcortical white matter, consistent with chronic small vessel ischemic disease. No CT evidence of acute intracranial hemorrhage or acute territorial infarction. No significant mass effect or midline shift. Basal cisterns patent. Cerebral ventricles: Prominence of the cortical sulci, cisterns and ventricular system, consistent with cerebral and cerebellar volume loss. Paranasal sinuses: Unremarkable. No fluid levels. Mastoid air cells: Grossly unremarkable. Vasculature: Calcific atherosclerotic disease in the cavernous internal carotid arteries, as well as the vertebro-basilar system. Bones/joints: No acute osseous abnormality. Soft tissues: Grossly unremarkable. IMPRESSION: 1. No CT evidence of acute intracranial pathology. 2. Additional findings, as above. MICROBIOLOGY: Please see below. ASSESSMENT: 50-year-old male with a past medical history of CVA 2 with residual right-sided weakness, congestive heart failure, CAD status post SC in 2018, status post 1 stent at [place], diabetes type 2, uncontrolled, hypertension, hyperlipidemia., Presented to ER with right-sided numbness and weakness below baseline. Noted to have right-sided deficits, status post CVA 2, last in 2018. Patient stated to me onset of symptoms of 5 PM with persistence of symptoms at the time my examination. Initial CT of the head was without acute findings. MRI brain, MRA brain and MRA. Carotid arteries are pending. . PLAN: Suspected CVA with R sided hemiplegia and numbess - hx of CVA x 2 in past, with residual R sided weakness - timing of onset of symptoms unclear and varied - endorsed onset of symptoms at 5 pm, without improvement at the time of my examination at 21:50. - tPA was not given in ER - CT head wo contrast shows no acute findings, see above - patient takes ASA and plavix at home - Dr. Vinson called - recommending to c/w ASA, plavix, statin therapy - suspect recurrent CVA due to uncontrolled risk factors ie active smoker, uncontrolled DM2 - BG in ER 301 - finally, recommendation to obtain GAIL given recurrent CVA. - no hx of afib, EKG in ER shows NSR - we will check A1c, Lipid panel - fall precautions, PT and OT eval ordered - NPO except for meds. Started D5 1/2 NS at 100 cc/ hx of CAD - s/[facility]EN in 2012, [facility] [place] - c/w cardioprotective medications, ASA, plavix, statin Hx of DM2 - poorly controlled - BG 301 in Er - reduce levemir to 40 units qhs from 60 units, as presently NPO - check A1c, lipid panel - NPO for now pending speech eval - ISS and FSBS q6h - hypoglycemic precautions Hx of COPD - not O2 dependent - resume inhalers HTN - will maintain permissed hypertension, goal SBP 140-180 until MRI results return - resume home meds based in imaging ROBERT - will place O2 orders - used bipap at home, does not know settings, family unable to bring to hospital Obesity, BMI 35.6 - complicates care DVT ppx: SCDs. TEDs. heparin Dispo: pending clinical improvement Vital Signs Vital Signs Date Time Temp Pulse Resp B/P (MAP) Pulse Ox O2 Delivery O2 Flow Rate FiO2 04/10/21 21:30 79 16 144/77 (99) 97 Room Air 04/10/21 20:01 96.0 Laboratory Data Labs 24H Laboratory Tests 2 04/10/21 20:31: Immature Granulocyte % (Auto) 0.4, Neutrophils (%) (Auto) 54.9, Lymphocytes (%) (Auto) 31.7, Monocytes (%) (Auto) 8.1H, Eosinophils (%) (Auto) 4.3H, Basophils ( %) (Auto) 0.6, Neutrophils # (Auto) 5.3, Lymphocytes # (Auto) 3.0, Monocytes # (Auto) 0.8, Eosinophils # (Auto) 0.4, Basophils # (Auto) 0.1, Nucleated Red Blood Cells % (auto) 0.0, Activated Partial Thromboplast Time 29.2, Anion Gap 5L, Glomerular Filtration Rate > 60.0, Calcium Level 9.3, Total Creatine Kinase 99, Creatine Kinase MB 1.6, Creatine Kinase MB Relative Index 1.62, Troponin I < 0.02 04/10/21 20:35: Bedside Glucose (Misc Panel) 310H CBC/BMP Laboratory Tests 04/10/21 20:31 Home Medications Scheduled Brexpiprazole (Rexulti) 2 Mg Tablet, 2 MG PO DAILY Carvedilol (Carvedilol) 25 Mg Tab, 25 MG PO BID Clopidogrel Bisulfate (Plavix) 75 Mg Tablet, 75 MG PO DAILY Icosapent Ethyl (Vascepa) 1 Gm Capsule, 2 GM PO BID Insulin Glargine (Lantus) 100 Unit/Ml Inj, 60 UNIT SC QHS Insulin Human Lispro (Novolog) 100 Unit/1 Ml Vial, 1 DOSE SC AC PER SLIDING SCALE Losartan Potassium (Losartan Potassium) 25 Mg Tablet, 12.5 MG PO QHS Magnesium Oxide (Magnesium Oxide) 250 Mg Tablet, 250 MG PO QHS Multivitamins (Thera M Plus Tablet) 1 Each Tablet, 1 TAB PO DAILY Potassium Chloride (Potassium Chloride) 10 Meq Tab.er.prt, 20 MEQ PO BID Rosuvastatin Calcium (Rosuvastatin Calcium) 40 Mg Tablet, 40 MG PO QHS Triamterene/Hydrochlorothiazid (Triamterene-Hctz 75-50 mg Tab) 1 Tab Tab, 1 TAB PO DAILY Scheduled PRN Dextrose (Glucose) 4 Gm Tab.chew, 16 GM PO ASDIRECTED PRN for LOW BLOOD SUGAR FOR LEVEL LESS THAN 70 Epinephrine (Epipen 2-Tanner) 0.3 Mg/0.3 Ml Auto.injct, 0.3 MG IM ASDIRECTED PRN for ANAPHYLAXIS Ipratropium/Albuterol Sulfate (Combivent Respimat 20-100 Mcg) 1 Aer Aer, 1 PUFF INH QID PRN for SHORTNESS OF BREATH Allergies Coded Allergies: bee venom protein (honey bee) (Verified Allergy, Severe, ANAPHYLACTIC, 01/31/21) lisinopril (Verified Allergy, Intermediate, facial edema, muscle aches, 04/10/21) simvastatin (Verified Allergy, Intermediate, facial edema, muscle aches, 04/10/21) varenicline (Verified Adverse Reaction, Mild, nightmares, 04/10/21) A-FIB/CHADSVASC A-FIB History Current/History of A-Fib/PAF?: No Current PO Anticoag Therapy: No CLARIBEL MURGUIA MD Apr 10, 2021 23:04
[2021-04-10] MEDS ORDERED: DEXT4TAB15 PO (23:16)
[2021-04-10] MEDS ORDERED: INSUH10VL SC (23:16)
[2021-04-10] MEDS ORDERED: EPIP0.3I2 IM (23:16)
[2021-04-10] MEDS ORDERED: LOSA25TA14 PO (23:16)
[2021-04-10] MEDS ORDERED: POTA10TA67 PO (23:16)
[2021-04-10] MEDS ORDERED: ROSU40TA4 PO (23:16)
[2021-04-10] MEDS ORDERED: PLAV1TAB2 PO (23:16)
[2021-04-10] MEDS ORDERED: ESSE250T PO (23:16)
[2021-04-10] MEDS ORDERED: VASC1CAP2 PO (23:16)
[2021-04-10] MEDS ORDERED: VITMTA PO (23:16)
[2021-04-10] MEDS: D5W/0.45% SODIUM CHLORIDE 1,000 ML IV SCH (23:19)
[2021-04-10] MEDS ORDERED: EPINEPHrine INJ 1 MG/ML 1ML AMP IM PRN (23:20)
[2021-04-10] MEDS ORDERED: COMBIVENT RESPIMAT 100-20MCG INHALER 4GM INH PRN (23:20)
[2021-04-11 01:29] VITALS: BP 148/71
--- NOTE | 2021-04-11 01:31 | REPVR ---
PROCEDURE INFORMATION: Exam: MRA Neck Without Contrast Exam date and time: 04/11/2021 1:11 AM Age: 50 years old Clinical indication: Patient HX: RT hand weakness, nki, no priors; Additional info: Suspected ischemic CVA TECHNIQUE: Imaging protocol: Magnetic resonance angiography of the neck without contrast. COMPARISON: MRI-Spine,Cervical without con 01/10/2021 12:15 PM FINDINGS: Limitations: Patient motion. Right common carotid artery: No stenosis. No dissection or occlusion. Right internal carotid artery: No stenosis of the extracranial segment. No dissection or occlusion. Right external carotid artery: No stenosis. No dissection or occlusion of the origin. Right vertebral artery: Right vertebral artery is dominant. Left common carotid artery: No stenosis. No dissection or occlusion. Left internal carotid artery: No stenosis of the extracranial segment. No dissection or occlusion. Left external carotid artery: No stenosis. No dissection or occlusion of the origin. Left vertebral artery: No stenosis. No dissection or occlusion. IMPRESSION: No evidence of hemodynamically significant stenosis. REFERENCES: NASCET CRITERIA. The degree of internal carotid artery stenosis is based on NASCET criteria. Normal is no stenosis. Mild is less than 50% stenosis. Moderate is 50-69% stenosis. Severe is 70% to 99% stenosis. Total occlusion is no detectable patent lumen. Electronically signed by: Luis Mantilla On 04/11/2021 01:30:40 AM
--- NOTE | 2021-04-11 01:33 | REPVR ---
PROCEDURE INFORMATION: Exam: MRA Head Without Contrast; Arteriography Exam date and time: 04/11/2021 1:11 AM Age: 50 years old Clinical indication: Patient HX: RT hand weakness, nki, no priors; Additional info: Suspected ischemic CVA TECHNIQUE: Imaging protocol: Magnetic resonance angiography head without contrast. Exam focused on the arteries. COMPARISON: CT Head without contrast 04/10/2021 8:18 PM FINDINGS: Limitations: Patient motion. ANTERIOR CIRCULATION: Right internal carotid artery: Intracranial segment is patent with no significant stenosis. No aneurysm. Right middle cerebral artery: No occlusion or significant stenosis. No aneurysm. Right anterior cerebral artery: No occlusion or significant stenosis. No aneurysm. Left internal carotid artery: Intracranial segment is patent with no significant stenosis. No aneurysm. Left middle cerebral artery: No occlusion or significant stenosis. No aneurysm. Left anterior cerebral artery: Hypoplastic left A1 segment. POSTERIOR CIRCULATION: Right vertebral artery: Right vertebral artery is dominant. 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 Basilar artery: No occlusion or significant stenosis. No aneurysm. Right posterior cerebral artery: No occlusion or significant stenosis. No aneurysm. Left posterior cerebral artery: origin of the left posterior cerebral artery. IMPRESSION: No hemodynamically significant stenosis or large vessel occlusion. Electronically signed by: Luis Mantilla On 04/11/2021 01:33:13 AM
--- NOTE | 2021-04-11 01:34 | REPVR ---
PROCEDURE INFORMATION: Exam: MR Head Without Contrast Exam date and time: 04/11/2021 1:11 AM Age: 50 years old Clinical indication: Weakness, extremity; Right; Patient HX: RT hand weakness, nki, no priors; Additional info: Suspected ischemic CVA TECHNIQUE: Imaging protocol: MR of the head without contrast. COMPARISON: CT Head without contrast 04/10/2021 8:18 PM FINDINGS: There is patient motion. Mild volume loss. Major vascular flow voids at the skull base are preserved. No extra-axial fluid collection. No hydrocephalus. No midline shift or intracranial mass effect. Nonspecific white matter gliosis, probable chronic microvascular ischemia. No cerebral edema. No diffusion restriction. Visualized paranasal sinuses and mastoid air cells are clear. IMPRESSION: No acute intracranial abnormality. Electronically signed by: Luis Mantilla On 04/11/2021 01:33:29 AM
[2021-04-11] MEDS: HumaLOG INSULIN (NovoLOG) PER UNIT SC SCH ×3 (02:04→12:14)
[2021-04-11] MEDS: POTASSIUM CHLORIDE 10 MEQ SR TABLET PO SCH ×2 (02:05→08:29)
[2021-04-11] MEDS: CARVedilol 12.5 MG TAB PO SCH ×2 (02:06→08:32)
[2021-04-11] MEDS: ASPIRIN 81MG ENTERIC TABLET PO SCH ×2 (02:06→08:30)
[2021-04-11 06:00] VITALS: BP 131/76
[2021-04-11 06:38] LABS: BASO # 0.1 10^3/uL (0.0-0.2); BASO % 0.6 % (0.0-1.0); EOS # 0.4 10^3/uL (0.0-0.5); EOS % 4.5 % (0.0-3.0); HEMATOCRIT 44.5 % (42.0-52.0); LYMPH # 2.7 10^3/uL (1.5-5.0); LYMPH % 31.9 % (24.0-44.0); MEAN CORPUSCULAR HEMOGLOBIN 29.4 pg (27.0-33.0); MEAN CORPUSCULAR HGB CONC 33.7 g/dl (32.0-36.5); MEAN CORPUSCULAR VOLUME 87.1 fl (80.0-96.0); MONO # 0.8 10^3/uL (0.0-0.8); MONO % 8.9 % (2.0-8.0); NEUTROPHILS # 4.6 10^3/uL (1.5-8.5); NEUTROPHILS % 53.7 % (36.0-66.0); PLATELET COUNT, AUTOMATED 195 10^3/uL (150-450); RED BLOOD COUNT 5.11 10^6/uL (4.30-6.10); WHITE BLOOD COUNT 8.5 10^3/uL (4.0-10.0)
[2021-04-11 06:49] LABS: HEMOGLOBIN A1c 10.5 %
[2021-04-11 07:04] LABS: ALBUMIN 3.2 GM/DL (3.2-5.2); ALT/SGPT 61 U/L (12-78); BILIRUBIN,TOTAL 0.3 MG/DL (0.2-1.0); BLOOD UREA NITROGEN 26 MG/DL (7-18); CARBON DIOXIDE LEVEL 24 MEQ/L (21-32); CHLORIDE LEVEL 108 MEQ/L (98-107); CHOLESTEROL LEVEL 167 MG/DL (<200); CHOLESTEROL RISK RATIO 5.964 (<5); GLOMERULAR FILTRATION RATE > 60.0 (>56); GLUCOSE, FASTING 262 MG/DL (70-100); HDL CHOLESTEROL 28 MG/DL (>40); MAGNESIUM LEVEL 1.8 MG/DL (1.8-2.4); NON-HDL-C 139 MG/DL; POTASSIUM SERUM 3.6 MEQ/L (3.5-5.1); SODIUM LEVEL 140 MEQ/L (136-145); TOTAL PROTEIN 6.6 GM/DL (6.4-8.2); TRIGLYCERIDES LEVEL 471 MG/DL (<150); TROPONIN I < 0.02 NG/ML (< 0.10)
--- NOTE | 2021-04-11 07:26 | ECGEPIP ---
[facility] Test Date: 2021-04-11 Pat Name: MIRIAN KRISHNAMURTHY Department: Room: [place] [address] Gender: Male Search Engineer: SHARATH : 1970 Requested By: CLARIBEL MURGUIA Order Number: [id number] Reading MD: Chino Murphy Measurements Intervals [place] Rate: 66 P: 51 MS: 250 QRS: -11 QRSD: 120 T: 64 QT: 414 QTc: 434 Interpretive Statements Sinus rhythm with 1st degree AV block Possible Left atrial enlargement INTRAVENTRICULAR CONDUCTION DELAY Possible Lateral infarct , age undetermined Inferior infarct , age undetermined Similar to tracing done 11-19-20 Electronically Signed on 04-11-2021 7:25:54 EDT by Chino Murphy
[2021-04-11 08:32] VITALS: BP 153/85
[2021-04-11] MEDS: D5W/0.45% SODIUM CHLORIDE 1,000 ML IV SCH (08:33)
[2021-04-11] MEDS ORDERED: DOCUSATE SODIUM 100MG CAPSULE PO SCH (09:00)
[2021-04-11] MEDS ORDERED: BREXPIPRAZOLE 2MG TABLET (REXULTI) PO SCH (09:00)
[2021-04-11] MEDS ORDERED: CLOPIDOGREL 75 MG TAB PO ONE (09:00)
[2021-04-11] MEDS ORDERED: MAXZIDE 75/50 TABLET PO SCH (09:00)
--- NOTE | 2021-04-11 13:54 | IPNPDOC ---
Date Seen The patient was seen on 04/11/21. Progress Note SUBJECTIVE: Seen and examined at bedside. States that his deficits have improved and now feels like he is at baseline. Denies any chest pain, seizures of breath, nausea, vomiting, diarrhea. OBJECTIVE PHYSICAL EXAMINATION: VITAL SIGNS: please see below General: NAD, comfortable HEENT: PERRLA, EOMI, sclerae clear Neck: supple, normal ROM, no JVD Respiratory: lungs CTAB, no wheeze, no rales, no crackles CVS: RRR, normal S1, S2, no murmurs Abdo: soft, no masses, no hepatosplenomegaly, BS+, no rebound tenderness Extremities: no edema, pulses 2+ MSK: no joint deformities, normal ROM Neuro: 3/5 strenght in RUE, 3/5 strength in RLE. Diminished sensation in RUE, RLE. No pronator drift. Limited heel touch. No nystagmus. Speech clear. No uvular deviation. CN2-12 intact. PERRLA. Mentation normal, recall normal. Psych: calm, cooperative, AAO x 3 LABORATORY DATA, IMAGING STUDIES, MICROBIOLOGY: Please see below. Echocardiogram: . DVT prophylaxis ordered? SCDs. TEDs. Suspected CVA with R sided hemiplegia and numbess - hx of CVA x 2 in past, with residual R sided weakness - timing of onset of symptoms unclear and varied - endorsed onset of symptoms at 5 pm, without improvement at the time of my examination at 21:50. - tPA was not given in ER - CT head wo contrast shows no acute findings, see above - patient takes ASA and plavix at home - Dr. Vinson called - recommending to c/w ASA, plavix, statin therapy - suspect recurrent CVA due to uncontrolled risk factors ie active smoker, un controlled DM2 - BG in ER 301 - finally, recommendation to obtain GAIL given recurrent CVA. - no hx of afib, EKG in ER shows NSR - we will check A1c, Lipid panel - fall precautions, PT and OT eval ordered - cleared by speech therapy. Resumed consistent carbohydrate diet. hx of CAD - [facility] 2012, [facility] [place] - c/w cardioprotective medications, ASA, plavix, statin Hx of DM2 - poorly controlled - BG 301 in Er - reduce levemir to 40 units qhs from 60 units, as presently NPO - check A1c, lipid panel - NPO for now pending speech eval - ISS and FSBS q6h - hypoglycemic precautions Hx of COPD - not O2 dependent - resume inhalers HTN - will maintain permissed hypertension, goal SBP 140-180 until MRI results return - resume home meds based in imaging ROBERT - will place O2 orders - used bipap at home, does not know settings, family unable to bring to hospital Obesity, BMI 35.6 - complicates care DVT ppx: SCDs. TEDs. heparin Dispo: pending clinical improvement VS, I&O, 24H, Fishbone Vital Signs/I&O Vital Signs Date Time Temp Pulse Resp B/P (MAP) Pulse Ox O2 Delivery O2 Flow Rate FiO2 04/11/21 08:32 74 153/85 04/11/21 06:00 97.0 16 99 Room Air I&O- Last 24 Hours up to 6 AM 04/11/21 06:00 Intake Total 600 ml Output Total 0 ml Balance 600 ml Laboratory Data 24H LABS Laboratory Tests 2 04/10/21 20:31: Immature Granulocyte % (Auto) 0.4, Neutrophils (%) (Auto) 54.9, Lymphocytes (%) (Auto) 31.7, Monocytes (%) (Auto) 8.1H, Eosinophils (%) (Auto) 4.3H, Basophils (%) (Auto) 0.6, Neutrophils # (Auto) 5.3, Lymphocytes # (Auto) 3.0, Monocytes # (Auto) 0.8, Eosinophils # (Auto) 0.4, Basophils # (Auto) 0.1, Nucleated Red B lood Cells % (auto) 0.0, Activated Partial Thromboplast Time 29.2, Anion Gap 5L, Glomerular Filtration Rate > 60.0, Calcium Level 9.3, Total Creatine Kinase 99, Creatine Kinase MB 1.6, Creatine Kinase MB Relative Index 1.62, Troponin I < 0.02 04/10/21 20:35: Bedside Glucose (Misc Panel) 310H 04/10/21 23:50: Troponin I < 0.02 04/11/21 01:40: Bedside Glucose (Misc Panel) 283H 04/11/21 03:00: Troponin I < 0.02 04/11/21 05:46: Bedside Glucose (Misc Panel) 275H 04/11/21 06:19: Troponin I < 0.02, Immature Granulocyte % (Auto) 0.4, Neutrophils (%) (Auto) 53.7, Lymphocytes (%) (Auto) 31.9, Monocytes (%) (Auto) 8.9H, Eosinophils (%) (Auto) 4.5H, Basophils (%) (Auto) 0.6, Neutrophils # (Auto) 4.6, Lymphocytes # (Auto) 2.7, Monocytes # (Auto) 0.8, Eosinophils # (Auto) 0.4, Basophils # (Auto) 0.1, Nucleated Red Blood Cells % (auto) 0.0, Anion Gap 8, Glomerular Filtration Rate > 60.0, Estimated Mean Plasma Glucose 255H, Hemoglobin A1c 10.5, Calcium Level 9.0, Magnesium Level 1.8, Total Bilirubin 0.3, Aspartate Amino Transf (AST/SGOT) 31, Alanine Aminotransferase (ALT/SGPT) 61, Alkaline Phosphatase 97, Total Protein 6.6, Albumin 3.2, Albumin/Globulin Ratio 0.9, Triglycerides Level 471H, Total Cholesterol 167, LDL Cholesterol , Non-HDL Cholesterol (LDL + VLDL) 139, Total HDL Cholesterol 28L, Cholesterol/HDL Ratio 5.964H 04/11/21 12:07: Bedside Glucose (Misc Panel) 269H CBC/BMP Laboratory Tests 04/10/21 20:31 04/11/21 06:19 Microbiology Microbiology 04/10/21 Respiratory Virus Panel (PCR) ([facility]) - Final, Complete CLARIBEL MURGUIA MD Apr 11, 2021 13:53
[2021-04-11 14:00] VITALS: BP 140/79
--- NOTE | 2021-04-11 17:28 | DS.PDOC ---
Discharge Summary General Date of Admission Apr 10, 2021 at 22:34 Date of Discharge 04/11/21 Discharge Summary PROCEDURES PERFORMED DURING STAY: [None]. ADMITTING DIAGNOSES: 1. . DISCHARGE DIAGNOSES: 1. . COMPLICATIONS/CHIEF COMPLAINT: Weakness Of Right Side Of Body. HISTORY OF PRESENT ILLNESS: . HOSPITAL COURSE: . DISCHARGE MEDICATIONS: Please see below. ALLERGIES: Please see below. PHYSICAL EXAMINATION ON DISCHARGE: VITAL SIGNS: Please see below. GENERAL: HEENT: NECK: CARDIOVASCULAR EXAMINATION: RESPIRATORY EXAMINATION: ABDOMINAL EXAMINATION: EXTREMITIES: SKIN: NEUROLOGICAL EXAMINATION: PSYCHIATRIC EXAMINATION: LABORATORY DATA: Please see below. IMAGING: PROGNOSIS: ACTIVITY: [As tolerated]. DIET: DISCHARGE PLAN: DISPOSITION: 07 Against Medical Advice. DISCHARGE INSTRUCTIONS: 1. . ITEMS TO FOLLOWUP ON ON OUTPATIENT: 1. . DISCHARGE CONDITION: [Stable]. TIME SPENT ON DISCHARGE: Greater than minutes. Vital Signs/I&Os Vital Signs Date Time Temp Pulse Resp B/P (MAP) Pulse Ox O2 Delivery O2 Flow Rate FiO2 04/11/21 14:00 98.2 68 17 140/79 (99) 99 Room Air I&O- Last 24 Hours up to 6 AM 04/11/21 06:00 Intake Total 600 ml Output Total 0 ml Balance 600 ml Laboratory Data Labs 24H Laboratory Tests 2 04/10/21 20:31: Immature Granulocyte % (Auto) 0.4, Neutrophils (%) (Auto) 54.9, Lymphocytes (%) (Auto) 31.7, Monocytes (%) (Auto) 8.1H, Eosinophils (%) (Auto) 4.3H, Basophils (%) (Auto) 0.6, Neutrophils # (Auto) 5.3, Lymphocytes # (Auto) 3.0, Monocytes # (Auto) 0.8, Eosinophils # (Auto) 0.4, Basophils # (Auto) 0.1, Nucleated Red Blood Cells % (auto) 0.0, Activated Partial Thromboplast Time 29.2, Anion Gap 5L, Glomerular Filtration Rate > 60.0, Calcium Level 9.3, Total Creatine Kinase 99, Creatine Kinase MB 1.6, Creatine Kinase MB Relative Index 1.62, Troponin I < 0.02 04/10/21 20:35: Bedside Glucose (Misc Panel) 310H 04/10/21 23:50: Troponin I < 0.02 04/11/21 01:40: Bedside Glucose (Misc Panel) 283H 04/11/21 03:00: Troponin I < 0.02 04/11/21 05:46: Bedside Glucose (Misc Panel) 275H 04/11/21 06:19: Troponin I < 0.02, Immature Granulocyte % (Auto) 0.4, Neutrophils (%) (Auto) 53.7, Lymphocytes (%) (Auto) 31.9, Monocytes (%) (Auto) 8.9H, Eosinophils (%) (Auto) 4.5H, Basophils (%) (Auto) 0.6, Neutrophils # (Auto) 4.6, Lymphocytes # (Auto) 2.7, Monocytes # (Auto) 0.8, Eosinophils # (Auto) 0.4, Basophils # (Auto) 0.1, Nucleated Red Blood Cells % (auto) 0.0, Anion Gap 8, Glomerular Filtration Rate > 60.0, Estimated Mean Plasma Glucose 255H, Hemoglobin A1c 10.5, Calcium Level 9.0, Magnesium Level 1.8, Total Bilirubin 0.3, Aspartate Amino Transf (AST/SGOT) 31, Alanine Aminotransferase (ALT/SGPT) 61, Alkaline Phosphatase 97, Total Protein 6.6, Albumin 3.2, Albumin/Globulin Ratio 0.9, Triglycerides Level 471H, Total Cholesterol 167, LDL Cholesterol , Non-HDL Cholesterol (LDL + VLDL) 139, Total HDL Cholesterol 28L, Cholesterol/HDL Ratio 5.964H 04/11/21 12:07: Bedside Glucose (Misc Panel) 269H CBC/BMP Laboratory Tests 04/10/21 20:31 04/11/21 06:19 FSBS Laboratory Tests Test 04/10/21 20:35 04/11/21 01:40 04/11/21 05:46 04/11/21 12:07 Range/Units Bedside Glucose (Misc Panel) 310 283 275 269 70-105 MG/DL Microbiology Microbiology 04/10/21 Respiratory Virus Panel (PCR) ([facility]) - Final, Complete Discharge Medications Scheduled Brexpiprazole (Rexulti) 2 Mg Tablet, 2 MG PO DAILY, (Reported) Carvedilol (Carvedilol) 25 Mg Tab, 25 MG PO BID, (Reported) Clopidogrel Bisulfate (Plavix) 75 Mg Tablet, 75 MG PO DAILY, (Reported) Icosapent Ethyl (Vascepa) 1 Gm Capsule, 2 GM PO BID, (Reported) Insulin Glargine (Lantus) 100 Unit/Ml Inj, 60 UNIT SC QHS, (Reported) Insulin Human Lispro (Novolog) 100 Unit/1 Ml Vial, 1 DOSE SC AC, (Reported) PER SLIDING SCALE Losartan Potassium (Losartan Potassium) 25 Mg Tablet, 12.5 MG PO QHS, (Reported) Magnesium Oxide (Magnesium Oxide) 250 Mg Tablet, 250 MG PO QHS, (Reported) Multivitamins (Thera M Plus Tablet) 1 Each Tablet, 1 TAB PO DAILY, (Reported) Potassium Chloride (Potassium Chloride) 10 Meq Tab.er.prt, 20 MEQ PO BID, (Reported) Rosuvastatin Calcium (Rosuvastatin Calcium) 40 Mg Tablet, 40 MG PO QHS, (Reported) Triamterene/Hydrochlorothiazid (Triamterene-Hctz 75-50 mg Tab) 1 Tab Tab, 1 TAB PO DAILY, (Reported) Scheduled PRN Dextrose (Glucose) 4 Gm Tab.chew, 16 GM PO ASDIRECTED PRN for LOW BLOOD SUGAR, (Reported) FOR LEVEL LESS THAN 70 Epinephrine (Epipen 2-Tanner) 0.3 Mg/0.3 Ml Auto.injct, 0.3 MG IM ASDIRECTED PRN for ANAPHYLAXIS, (Reported) Ipratropium/Albuterol Sulfate (Combivent Respimat 20-100 Mcg) 1 Aer Aer, 1 PUFF INH QID PRN for SHORTNESS OF BREATH, (Reported) Allergies Coded Allergies: bee venom protein (honey bee) (Verified Allergy, Severe, ANAPHYLACTIC, 01/31/21) lisinopril (Verified Allergy, Intermediate, facial edema, muscle aches, 04/10/21) simvastatin (Verified Allergy, Intermediate, facial edema, muscle aches, 04/10/21) varenicline (Verified Adverse Reaction, Mild, nightmares, 04/10/21) CLARIBEL MURGUIA MD Apr 11, 2021 17:27
--- NOTE | 2021-04-11 19:57 | ECHO ---
"ECHOCARDIOGRAM DATE OF PROCEDURE: 04/11/2021 Age: 50 Gender: Male Height: 173 cm Weight: 106 kg REFERRING PHYSICIAN: Dr. Calvin Chambers INDICATION: Stroke MEASUREMENTS: | IVS 1.6 cm LV 5.3 cm LVPW 1.5 cm LA 3.8 cm Aorta 3.8 cm IVC 1.9 cm DOPPLER MEASUREMENT Mitral E wave velocity 69 Mitral A wave 84 E prime septal 4.5 E prime lateral 5.3 FINDINGS: This study is of adequate technical quality. Patient is in sinus rhythm. Left ventricle is normal size. Moderate left ventricular hypertrophy is present. Overall preserved left ventricular systolic function with estimated EF around 60%. No segmental wall motion abnormalities appreciated. Right ventricle is also normal size and systolic function. Both atria appear normal. All four cardiac valves were reasonably well seen and appear normal. No pericardial effusion is noted. Inferior vena cava is of normal size. Aortic root is borderline dilated at 3.8 cm. Aortic arch and abdominal aorta appear normal. Doppler interrogation reveals no aortic stenosis and trace aortic insufficiency. Mitral, tricuspid and pulmonic valves are functionally competent without significant stenosis or insufficiency. Mitral inflow pattern and tissue Doppler imaging of the mitral annulus revealed grade 1 diastolic dysfunction. CONCLUSIONS: 1. Study is of acceptable technical quality, underlying sinus rhythm. 2. Normal LV size with moderate LVH and preserved LV systolic function. Grade 1 diastolic dysfunction. 3. No significant valvular disease. 4. Likely normal central venous pressure. 5. Unable to estimate pulmonary artery pressure, but no signs to suggest pulmonary hypertension. 6. Borderline dilated aortic root (3.8 cm)."
[2021-04-11] MEDS ORDERED: LOSARTAN 25 MG TAB PO SCH (21:00)
[2021-04-12] MEDS ORDERED: MULTIVITAMINS/MINERALS THERAP 1 TAB PO SCH (09:00)
--- NOTE | 2021-04-12 19:54 | ECGEPIP ---
[facility] - ED Test Date: 2021-04-10 Pat Name: MIRIAN KRISHNAMURTHY Department: Room: [place] [address] Gender: Male Dock Coordinator: CHRISTINE : 1970 Requested By: Mohsen Enriquez Order Number: [id number] Reading MD: Soledad Main Measurements Intervals [place] Rate: 75 P: 35 MO: 232 QRS: -9 QRSD: 110 T: 44 QT: 394 QTc: 439 Interpretive Statements Sinus rhythm with 1st degree AV block Possible Left atrial enlargement Inferior infarct , age undetermined ivcd NSTTW abnormalities similar 11/19/20 Electronically Signed on 04-12-2021 19:54:25 EDT by Soledad Main
== END 2021-04-11 16:55 | disposition left against medical advice (07) | DRG 65 ==
LOC: M ED 19:59 → M ED INP 22:34 → M MSPAV 04-11 01:29
PROVIDERS: ADMIT Family Medicine; ATTEND Family Medicine
DX: I63.9 Cerebral infarction, unspecified (principal); I69.351 Hemiplegia and hemiparesis following cerebral infarction affecting right dominant side; Z79.899 Other long term (current) drug therapy; Z79.4 Long term (current) use of insulin; Z91.030 Bee allergy status; Z88.8 Allergy status to other drugs, medicaments and biological substances; I50.9 Heart failure, unspecified; I25.10 Atherosclerotic heart disease of native coronary artery without angina pectoris; I25.2 Old myocardial infarction; Z95.2 Presence of prosthetic heart valve; E11.9 Type 2 diabetes mellitus without complications; E78.5 Hyperlipidemia, unspecified; I11.0 Hypertensive heart disease with heart failure; G47.33 Obstructive sleep apnea (adult) (pediatric); G43.909 Migraine, unspecified, not intractable, without status migrainosus; E66.9 Obesity, unspecified; F17.200 Nicotine dependence, unspecified, uncomplicated; K21.9 Gastro-esophageal reflux disease without esophagitis; K76.0 Fatty (change of) liver, not elsewhere classified; Z68.35 Body mass index [BMI] 35.0-35.9, adult; J44.9 Chronic obstructive pulmonary disease, unspecified

== ENCOUNTER 2022-08-20 08:48 | Inpatient (IN) | payer OTHER ==
[~2022-08-20] VITALS: Ht 172.7 cm; Wt 113.0 kg
[~2022-08-20 08:48] MED LIST changes: +BUPR-71 PO; -BUPR150T5 PO; +CLOP75TA99 PO; +DEXT4TAB15 PO; +EPIP0.3I2 IM; +ESSE250T PO; +FISH10005 PO; -FISH7.5C PO; +FLUO-96 PO; -FLUO20CA20 PO; +INSUH10VL SC; +LOSA100T45 PO; -LOSA100T50 PO; +LOSA25TA13 PO; -PLAV1TAB2 PO; +REXU1TAB4 PO; +ROSU40TA4 PO; +VASC1CAP2 PO; +VITMTA PO
[2022-08-20 09:57] LABS: BASO % 0.4 % (0.0-1.0); EOS # 0.3 10^3/uL (0.0-0.5); EOS % 2.7 % (0.0-3.0); HEMOGLOBIN 15.7 g/dl (13.5-17.5); LYMPH # 3.1 10^3/uL (1.5-5.0); LYMPH % 30.5 % (24.0-44.0); MEAN CORPUSCULAR HEMOGLOBIN 29.4 pg (27.0-33.0); MEAN CORPUSCULAR HGB CONC 33.4 g/dl (32.0-36.5); MONO # 0.7 10^3/uL (0.0-0.8); MONO % 6.5 % (2.0-8.0); NEUTROPHILS # 6.1 10^3/uL (1.5-8.5); NEUTROPHILS % 59.3 % (36.0-66.0); PLATELET COUNT, AUTOMATED 271 10^3/uL (150-450); RED BLOOD COUNT 5.34 10^6/uL (4.30-6.10); WHITE BLOOD COUNT 10.2 10^3/uL (4.0-10.0)
[2022-08-20] MEDS: METOPROLOL 5 MG/5 ML VIAL IV SCH ×3 (10:05→11:44)
[2022-08-20 10:30] LABS: CK-MB VALUE MASS 2.7 NG/ML (<3.6); MB/CK RELATIVE INDEX 2.45 (< OR =4)
[2022-08-20 10:37] LABS: ALBUMIN 3.4 GM/DL (3.2-5.2); ALT/SGPT 57 U/L (12-78); BILIRUBIN,DIRECT < 0.1 MG/DL (0.0-0.2); BILIRUBIN,TOTAL 0.4 MG/DL (0.2-1.0); BLOOD UREA NITROGEN 32 MG/DL (7-18); CALCIUM LEVEL 8.8 MG/DL (8.5-10.1); CARBON DIOXIDE LEVEL 24 MEQ/L (21-32); CHLORIDE LEVEL 104 MEQ/L (98-107); CREATININE FOR GFR 1.25 MG/DL (0.70-1.30); FREE T4 0.81 NG/DL (0.76-1.46); GLOMERULAR FILTRATION RATE > 60.0 (>56); GLUCOSE, FASTING 288 MG/DL (70-100); LIPASE 216 U/L (73-393); MAGNESIUM LEVEL 1.7 MG/DL (1.8-2.4); NT-PRO BNP 143 PG/ML (<125); SODIUM LEVEL 136 MEQ/L (136-145); TOTAL PROTEIN 7.2 GM/DL (6.4-8.2)
[2022-08-20] MEDS ORDERED: MAG SULF 1GM/100ML (MAG RUN) 1 GM in IV 1 EA IV ONE (10:50)
[2022-08-20] MEDS ORDERED: DIGOXIN INJ 0.5 MG/2 ML AMP IV STA (11:38)
[2022-08-20] MEDS ORDERED: NS 1,000 ML IV ONE (11:55)
[2022-08-20] MEDS ORDERED: METOPROLOL TART 25 MG TABLET PO SCH (12:00)
[2022-08-20] MEDS ORDERED: DEXTROSE 50% 50 ML SYRINGE IV PRN (12:00)
[2022-08-20] MEDS ORDERED: GLUCAGON INJ 1MG VIAL SC PRN (12:00)
[2022-08-20] MEDS ORDERED: INSULIN LISPRO (NovoLOG) PER UNIT SC SCH ×2 (12:00→21:00)
[2022-08-20] MEDS ORDERED: GLUCOSE 4GM CHEW TABLET PO PRN ×2 (12:00→13:10)
[2022-08-20] MEDS ORDERED: MIDODRINE 5 MG TAB PO SCH (12:00)
[2022-08-20] MEDS ORDERED: VENTAER INH (12:26)
[2022-08-20] MEDS ORDERED: TRES1INJ SC (12:26)
[2022-08-20] MEDS ORDERED: VITA100093 PO (12:26)
[2022-08-20] MEDS ORDERED: GLUC1KIT IM (12:26)
[2022-08-20] MEDS ORDERED: LITH150C PO (12:26)
[2022-08-20] MEDS ORDERED: MAGN400T2 PO (12:26)
[2022-08-20] MEDS ORDERED: DULO1CAP6 PO (12:26)
[2022-08-20] MEDS ORDERED: ASPI81TA26 PO (12:26)
[2022-08-20] MEDS ORDERED: INSU100V3 SC (12:26)
[2022-08-20] MEDS ORDERED: CHLO25TA88 PO (12:26)
[2022-08-20] MEDS ORDERED: METF-838 PO (12:26)
[2022-08-20] MEDS ORDERED: HOME MED LIST COMPLETE! XX SCH (12:30)
[2022-08-20 12:43] LABS: INR 0.9; PROTHROMBIN TIME 12.3 SECONDS (12.5-14.5)
[2022-08-20 12:44] LABS: PARTIAL THROMBOPLASTIN TIME 27.8 SECONDS (24.8-34.2)
[2022-08-20 12:55] VITALS: BP 114/98
[2022-08-20] MEDS ORDERED: ALBUTEROL 90 MCG/ACT 8GM HFA INHALER INH PRN (13:10)
[2022-08-20 14:32] VITALS: BP 121/81
[2022-08-20] MEDS ORDERED: ELIQ5TAB PO (15:03)
[2022-08-20] MEDS ORDERED: METO1TAB87 PO (15:03)
[2022-08-20] MEDS ORDERED: CARA1TAB6 PO (15:06)
[2022-08-20] MEDS ORDERED: PRIL20TA2 PO (15:06)
[2022-08-20] MEDS ORDERED: NIRM1TAB PO (15:06)
[2022-08-20] MEDS ORDERED: DIGOXIN INJ 0.5 MG/2 ML AMP IV SCH (18:00)
[2022-08-20] MEDS ORDERED: APIXABAN 5 MG TAB (ELIQUIS) PO SCH (21:00)
[2022-08-20] MEDS ORDERED: MAGNESIUM OXIDE 400MG TAB (MAG-OX) PO SCH (21:00)
[2022-08-20] MEDS ORDERED: ROSUVASTATIN 10 MG TAB (CRESTOR) PO SCH (21:00)
[2022-08-20] MEDS ORDERED: ASPIRIN 81MG ENTERIC TABLET PO SCH (21:00)
[2022-08-20] MEDS ORDERED: VITAMIN D 1,000 INTERNATIONAL UNITS TABLET PO SCH (21:00)
[2022-08-21] MEDS ORDERED: MAXZIDE 75/50 TABLET PO SCH (09:00)
[2022-08-21] MEDS ORDERED: MULTIVITAMINS/MINERALS THERAP 1 TAB PO SCH (09:00)
[2022-08-21] MEDS ORDERED: DULoxetine 30MG CAPSULE (CYMBALTA) PO SCH (09:00)
[2022-08-21] MEDS ORDERED: CLOPIDOGREL 75 MG TAB PO SCH (09:00)
== END 2022-08-20 15:13 | disposition left against medical advice (07) | DRG 178 ==
LOC: M ED 08:48 → M ED INP 11:53 → ENRESERV 13:36
PROVIDERS: ADMIT General Practice; ATTEND General Practice
DX: U07.1 COVID-19 (principal); I69.351 Hemiplegia and hemiparesis following cerebral infarction affecting right dominant side; J44.9 Chronic obstructive pulmonary disease, unspecified; I50.9 Heart failure, unspecified; I25.10 Atherosclerotic heart disease of native coronary artery without angina pectoris; E11.9 Type 2 diabetes mellitus without complications; I48.91 Unspecified atrial fibrillation; K21.9 Gastro-esophageal reflux disease without esophagitis; I11.0 Hypertensive heart disease with heart failure; G47.33 Obstructive sleep apnea (adult) (pediatric); Z95.2 Presence of prosthetic heart valve; K76.0 Fatty (change of) liver, not elsewhere classified; E66.9 Obesity, unspecified; G43.909 Migraine, unspecified, not intractable, without status migrainosus; F17.200 Nicotine dependence, unspecified, uncomplicated; Z68.35 Body mass index [BMI] 35.0-35.9, adult; Z79.82 Long term (current) use of aspirin; Z79.899 Other long term (current) drug therapy; Z79.4 Long term (current) use of insulin; Z91.030 Bee allergy status; Z88.8 Allergy status to other drugs, medicaments and biological substances

== ENCOUNTER → 2022-11-14 | Outpatient (CLI) | payer OTHER ==
[~2022-11-14] MED LIST changes: +CARA1TAB6 PO; +CHLO25TA88 PO; +DULO1CAP6 PO; +ELIQ5TAB PO; +GLUC1KIT IM; +INSU100V3 SC; +LITH150C PO; +MAGN400T2 PO; +METO1TAB87 PO; +NIRM1TAB PO; -POTA10CA32 PO; +POTA10CA33 PO; +PRIL20TA2 PO; +TRES1INJ SC; +VENTAER INH; +VITA100093 PO
== END ==
LOC: M RAD 09:30
PROVIDERS: ATTEND Internal Medicine
DX: R80.0 Isolated proteinuria (principal)

== ENCOUNTER → 2023-01-18 | Outpatient (CLI) | payer OTHER ==
[2023-01-18 14:17] LABS: HEMATOCRIT 45.9 % (42.0-52.0); HEMOGLOBIN 14.6 g/dl (13.5-17.5); MEAN CORPUSCULAR HEMOGLOBIN 29.1 pg (27.0-33.0); MEAN CORPUSCULAR HGB CONC 31.8 g/dl (32.0-36.5); MEAN CORPUSCULAR VOLUME 91.6 fl (80.0-96.0); PLATELET COUNT, AUTOMATED 260 10^3/uL (150-450); RED BLOOD COUNT 5.01 10^6/uL (4.30-6.10); WHITE BLOOD COUNT 11.5 10^3/uL (4.0-10.0)
== END ==
LOC: M PLALAB 10:17
PROVIDERS: ATTEND Physician Assistant
DX: I48.0 Paroxysmal atrial fibrillation (principal)

== ENCOUNTER 2024-04-07 10:42 | Emergency (ER) | payer OTHER ==
[~2024-04-07] VITALS: Ht 172.7 cm; Wt 85.1 kg
[~2024-04-07 10:42] MED LIST changes: +BUPR-597 PO; -BUPR300T92 PO; -DEXT4TAB15 PO; +DEXT4TAB9 PO; -LOSA100T45 PO; +LOSA100T46 PO; -POTA10CA33 PO; +POTA10CA70 PO; -ROSU40TA4 PO; +ROSU40TA63 PO
[2024-04-07] MEDS: LIDOCAINE 2% MDV 20ML VIAL SC ONE (14:34)
[2024-04-07] MEDS: CEPHALEXIN 500 MG CAP PO ONE (14:34)
[2024-04-07] MEDS ORDERED: CEPH500C PO (15:24)
[2024-04-07] MEDS: BACITRACIN OINTMENT 30GM TUBE TOP ONE (15:25)
[2024-04-07 15:32] VITALS: TEMP 98
[2024-04-07 15:41] VITALS: BP 134/82; O2SAT 97
== END 2024-04-07 15:44 | disposition home or self-care (01) ==
LOC: M ED 10:42
DX: S61.215A Laceration without foreign body of left ring finger without damage to nail, initial encounter (principal); S61.213A Laceration without foreign body of left middle finger without damage to nail, initial encounter; S62.633B Displaced fracture of distal phalanx of left middle finger, initial encounter for open fracture; W29.3XXA Contact with powered garden and outdoor hand tools and machinery, initial encounter; G43.909 Migraine, unspecified, not intractable, without status migrainosus; G40.909 Epilepsy, unspecified, not intractable, without status epilepticus; I10 Essential (primary) hypertension; K21.9 Gastro-esophageal reflux disease without esophagitis; G47.33 Obstructive sleep apnea (adult) (pediatric); F43.10 Post-traumatic stress disorder, unspecified; Z86.79 Personal history of other diseases of the circulatory system; Z87.442 Personal history of urinary calculi; Z91.030 Bee allergy status; Z88.8 Allergy status to other drugs, medicaments and biological substances; Z79.52 Long term (current) use of systemic steroids; Z79.01 Long term (current) use of anticoagulants; Z79.82 Long term (current) use of aspirin; Z79.811 Long term (current) use of aromatase inhibitors; Z79.4 Long term (current) use of insulin; Z79.899 Other long term (current) drug therapy; Y92.009 Unspecified place in unspecified non-institutional (private) residence as the place of occurrence of the external cause; Y99.9 Unspecified external cause status; Y93.89 Activity, other specified

== ENCOUNTER → 2024-05-13 | Outpatient (CLI) | payer OTHER ==
[~2024-05-13] MED LIST changes: +CEPH500C PO
[2024-05-13 11:26] LABS: ALBUMIN 3.9 G/DL (3.2-5.2); ALKALINE PHOSPHATASE 78 U/L (46-116); ALT/SGPT 26 U/L (7.0-40); AST/SGOT 13 U/L (<34); BILIRUBIN,DIRECT 0.1 MG/DL (<0.4); BILIRUBIN,TOTAL 0.3 MG/DL (0.3-1.2); CHOLESTEROL LEVEL 57 MG/DL (<200); CHOLESTEROL RISK RATIO 2.66 (<5); HDL CHOLESTEROL 21.4 MG/DL (>40); NON-HDL-C 35.6 MG/DL; TOTAL PROTEIN 6.7 G/DL (5.7-8.2); TRIGLYCERIDES LEVEL 370 MG/DL (<150)
== END ==
LOC: M PLALAB 08:07
PROVIDERS: ATTEND Physician Assistant
DX: E78.2 Mixed hyperlipidemia (principal)

== ENCOUNTER → 2025-05-19 | Outpatient (CLI) | payer OTHER ==
[~2025-05-19] MED LIST changes: -BUPR-597 PO; +BUPR-766 PO; -ESSE250T PO; -FLOM0.4C39 PO; -GLUC1KIT IM; +GLUC1VIA14 IM; +MAGN250T17 PO; -ROSU40TA63 PO; +ROSU40TA81 PO; +TAMS-18 PO
== END ==
LOC: M PLAIMG 14:28
PROVIDERS: ATTEND Physician Assistant
DX: I77.810 Thoracic aortic ectasia (principal); I08.0 Rheumatic disorders of both mitral and aortic valves; I44.30 Unspecified atrioventricular block; I44.7 Left bundle-branch block, unspecified